=== PATIENT | male | born 1970 | race American Indian/Alaskan Native ===

== ENCOUNTER 2017-05-06 17:37 | Inpatient (IN) | payer MEDICAID, OTHER ==
[2017-05-06 17:49] VITALS: BMI 23.6
[2017-05-06] MEDS ORDERED: Sodium Chloride 0.9% 1,000 ML IV STA (18:21)
--- NOTE | 2017-05-06 18:34 | ED PDOC ---
Arrival/HPI - General Chief Complaint: Weakness/Neurological Deficit Time Seen by Provider: 05/06/17 18:05 Historian: Patient - History of Present Illness Narrative History of Present Illness (Text): 05/06/17 18:38 Patient with no past medical history, reports having an episode of numbness to the right side of his face last night which lasted for a few seconds and resolved spontaneously. He presents today for continued "tingling" sensation to the R side of the face, b/l fingertips and R calf this this AM with no facial or extremity weakness. Patient states that he was sitting watching TV when the episode occurred and his was by his side, his witnessed the entire episode. As per patient's patient started becoming unresponsive although he was awake, his eyes were open, they did not roll back, and started "humming, " and he was just limp for a few seconds, he then become suddenly more alert and the entire episodes ceased spontaneously. He then was able to stand up and walked to his bed and fell asleep as per his . Otherwise: (-) lightheadedness, (-) trauma, (-) headache, (-) palpitations, (-) tinnitus, (-) hearing loss, (-) chest pain, (-) dyspnea, (-) fever, (-) vomiting, (-) diarrhea , (-) syncope, (-) GI bleeding. PMD none Past Medical History - Provider Review Nursing Documentation Reviewed: Yes - Psychiatric Hx Substance Use: No - Surgical History Other/Comment: Left elbow sx Family/Social History - Physician Review Nursing Documentation Reviewed: Yes Family/Social History: No Known Family HX Smoking Status: Heavy Smoker > 10 Cigarettes Daily Hx Alcohol Use: Yes Frequency of alcohol use: Socially Hx Substance Use: No Allergies/Home Meds Allergies/Adverse Reactions: Allergies No Known Allergies Allergy (Verified 05/06/17 17:49) Home Medications: Home Meds Medication Instructions Recorded Confirmed No Known Home Med 05/06/17 05/06/17 Review of Systems - Review of Systems Constitutional: Normal. absent: Fatigue, Weight Change, Fevers Respiratory: Normal. absent: SOB, Cough, Sputum Cardiovascular: Normal. absent: Chest Pain, Palpitations, Edema Gastrointestinal: Normal. absent: Abdominal Pain, Diarrhea, Vomiting Musculoskeletal: Normal. absent: Arthralgias, Back Pain, Neck Pain Skin: Normal. absent: Rash, Pruritis, Skin Lesions Neurological: Normal, Other (numbness R side of the face, fingertips and R calf) . absent: Headache, Dizziness, Focal Weakness Physical Exam Vital Signs Reviewed: Yes Vital Signs Temp Pulse Resp BP Pulse Ox 05/07/17 00:28 98 F 75 20 122/84 98 05/06/17 23:44 96 H 16 140/98 H 100 05/06/17 23:00 93 H 18 118/82 100 05/06/17 20:13 100 H 17 124/89 100 05/06/17 17:46 98.6 F 89 18 138/87 98 Temperature: Afebrile Blood Pressure: Normal Pulse: Regular Respiratory Rate: Normal Appearance: Positive for: Well-Appearing, Non-Toxic, Comfortable Pain Distress: None Mental Status: Positive for: Alert and Oriented X 3 Finger Stick Blood Glucose: 79 - Systems Exam Head: Present: Atraumatic, Normocephalic Pupils: Present: PERRL Extroacular Muscles: Present: EOMI Conjunctiva: Present: Normal Mouth: Present: Moist Mucous Membranes Pharnyx: Present: Normal Neck: Present: Normal Range of Motion. No: MIDLINE TENDERNESS, Paraspinal Tenderness Respiratory/Chest: Present: Clear to Auscultation, Good Air Exchange. No: Respiratory Distress, Accessory Muscle Use, Wheezes, Rhonchi Cardiovascular: Present: Regular Rate and Rhythm, Normal S1, S2. No: Murmurs Abdomen: No: Tenderness, Distention, Rebound, Guarding Back: Present: Normal Inspection. No: CVA Tenderness, Midline Tenderness Upper Extremity: Present: Normal Inspection, Normal ROM, NORMAL PULSES, Neurovascularly Intact, Temperature Abnormalties, Capillary Refill < 2s. No: Edema, Tenderness, Swelling Lower Extremity: Present: Normal Inspection, NORMAL PULSES, Normal ROM, Temperature Abnormalties, Capillary Refill < 2 s. No: Edema, CALF TENDERNESS, Tenderness, Swelling Neurological: Present: GCS=15, CN II-XII Intact, Speech Normal, Motor Func Grossly Intact, Normal Sensory Function, Normal Cerebellar Funct, Norm Deep Tendon Reflexes, Gait Normal, Memory Normal, Normal 2Pt Descrimination Skin: Present: Warm, Dry, Normal Color. No: Rashes Lymphatic: No: Cervical Adenopathy Psychiatric: Present: Alert, Oriented x 3, Normal Insight, Normal Concentration Medical Decision Making ED Course and Treatment: 05/06/17 18:32 47-year-old male otherwise no past medical history, presents to the emergency room after having an episode of numbness to the right face yesterday night, today continues to have tingling sensation to R side of his face, bilateral fingertips, and the posterior right calf. Based on history and exam to rule out CVA, most likely TIA, consider seizure. Plan: -- Labs -- IV fluids -- Urinalysis -- EKG -- CXR -- Reassess and disposition -- CT head 05/06/17 19:58 CXR: NAD, as read by PA EKG: NSR at 78 bpm, no acute ST changes. Labs reviewed and are wnl. CT head results pending. On re-evaluation, patient is resting comfortably in no acute distress. Returned from CT without any incident and currently has no additional complaints. 05/06/17 21:18 CT head results show no acute findings. On reevaluation patient is resting comfortably in bed in no distress. Patient reports no dizziness, headache, chest pain, shortness of breath, or focal weakness or numbness at this time. Repeat neuro exam shows no focal findings. Considering patient's history, exam findings, and diagnostic results plan will be for inpatient observation. Case discussed associate medical director and with Dr. Bird Grigsby, agrees with disposition for inpt observation. Lab and CT results discussed the patient and his , further plan of care for inpatient observation discussed the patient and his and they both agree with current plan. 05/06/17 23:20 Troponin is + at 0.3. On re-evaluation, patient is resting comfortably in bed in no acute distress. Patient continues to deny any chest pain, palpitations, dyspnea or shortness of breath at this time. Dr. Grigsby called immediately and notified of positive result, she states she will follow-up on a repeat troponin , otherwise recommends no further intervention or treatment at this time in the emergency room. - Lab Interpretations Lab Results: 05/06/17 18:25 05/06/17 18:25 Lab Results 05/06/17 18:25: Sodium 137, Potassium 4.5, Chloride 103, Carbon Dioxide 25, Anion Gap 14, BUN 10, Creatinine 1.1, Est GFR ( Amer) > 60, Est GFR (Non- Af Amer) > 60, Random Glucose 103, Calcium 9.6, Total Bilirubin 0.8, AST 32, ALT 41, Alkaline Phosphatase 85, Total Protein 8.8 H, Albumin 4.3, Globulin 4.5 , Albumin/Globulin Ratio 1.0 L 05/06/17 18:25: PT 10.9, INR 1.01, APTT 29.2 05/06/17 18:25: WBC 8.2, RBC 4.63, Hgb 14.5, Hct 42.0, MCV 90.7, MCH 31.3, MCHC 34.5, RDW 14.0, Plt Count 247, MPV 10.0, Gran % 55.8, Lymph % (Auto) 30.9, [place] % (Auto) 11.5 H, Eos % (Auto) 1.6, Baso % (Auto) 0.2, Gran # 4.56, Lymph # 2.5, [place] # 0.9 H, Eos # 0.1, Baso # 0.02 05/06/17 18:00: Troponin I 0.30 H* 05/06/17 16:05: Urine Color Yellow, Urine Appearance Clear, Urine pH 7.5, Ur Specific [place] 1.015, Urine Protein Negative, Urine Glucose (UA) Negative, Urine Ketones Negative, Urine Blood Negative, Urine Nitrate Negative, Urine Bilirubin Negative, Urine Urobilinogen 0.2, Ur Leukocyte Esterase Small H, Urine RBC 1 - 3, Urine WBC 5 - 10, Ur Epithelial Cells 3 - 4, Urine Bacteria Mod I have reviewed the lab results: Yes (pt has +UTI) - RAD Interpretation Narrative RAD Interpretations (Text): 05/06/17 21:17 CT head w/o contrast : FINDINGS: Brain: Ventricles are normal in size and configuration. There is no midline shift. There are no intraaxial or extra-axial mass lesions or areas of hemorrhage. There are no abnormal fluid collections. Barrett-white differentiation is maintained. Ventricles: See above. Bones: Cranial vault is intact. 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 Soft tissues: unremarkable Sinuses: There is no acute sinusitis. Ears and mastoids: Middle ears and mastoids are unremarkable Orbits: Orbital contents are unremarkable. IMPRESSION: No acute intracranial abnormality If there is clinical suspicion for acute stroke, MRI is Dictated and Authenticated by: Hina Brandt MD 05/06/2017 8:20 PM Eastern Time ([place] & [place]) Radiology Orders: 05/06/17 18:26 HEAD W/O CONTRAST [CT] Stat 05/06/17 18:34 CHEST TWO VIEWS (PA/LAT) [RAD] Stat - Medication Orders Current Medication Orders: Aspirin (Aspirin Chewable) 81 mg PO DAILY CHANDRIKA Sodium Chloride (Sodium Chloride 0.9%) 1,000 mls @ 100 mls/hr IV .Q10H STA Stop: 05/07/17 04:20 Last Admin: 05/06/17 18:45 Dose: 100 mls/hr Pantoprazole Sodium (Protonix Inj) 40 mg IVP DAILY CHANDRIKA Discontinued Medications Aspirin (Aspirin) 325 mg PO STAT STA Stop: 05/06/17 18:35 Last Admin: 05/06/17 19:22 Dose: 325 mg Clopidogrel Bisulfate (Plavix) 75 mg PO STAT STA Stop: 05/07/17 02:02 NIHSS Stroke Scale 3 - Date/Time Evaluation Performed Date Performed: 05/06/17 Time Performed: 18:15 When Was NIHSS Performed: Baseline - How Severe is the Stroke Level of Consciousness: 0=Alert LOC to Questions: 0=Both comments correct LOC to commands: 0=Obeys both correctly Best Gaze: 0=Normal Visual: 0=No visual loss Facial: 0=Normal Motor Arm - Left: 0=No drift Motor Arm - Right: 0=No drift Motor Leg - Left: 0=No drift Motor Leg - Right: 0=No drift Limb Ataxia: 0=Absent Sensory: 0=Normal Best Language: 0=No aphasia Dysarthia: 0=Normal articulation Extinction & Inattention (Neglect): 0=Normal, no object Score: 0 - PA / TONE ARTIST APPRENTICE / Resident Statement MD/DO has reviewed & agrees with the documentation as recorded. Disposition/Present on Arrival - Present on Arrival Any Indicators Present on Arrival: No History of DVT/PE: No History of Uncontrolled Diabetes: No Urinary Catheter: No History of Decub. Ulcer: No History Surgical Site Infection Following: None - Disposition Have Diagnosis and Disposition been Completed?: Yes Diagnosis: TIA (transient ischemic attack) Disposition: HOSPITALIZED Disposition Time: 21:18 Patient Plan: Observation (inpt observation to remote tele) Patient Problems: Current Active Problems Problem Status Onset TIA (transient ischemic attack) Acute Condition: STABLE
[2017-05-06 18:49] LABS: BASO # 0.02 K/mm3 (0.0-2.0); BASO % 0.2 % (0.0-3.0); EOS # 0.1 (0.0-0.7); EOS % 1.6 % (1.5-5.0); GRAN # 4.56 (1.4-6.5); GRAN % 55.8 % (50.0-68.0); HEMOGLOBIN 14.5 gm/dL (14.0-18.0); LYMPH # 2.5 (1.2-3.4); LYMPH % 30.9 % (22.0-35.0); MEAN CELL VOLUME 90.7 fL (80.0-105.0); MEAN CORPUSCULAR HEMOGLOBIN 31.3 pg (25.0-35.0); MEAN CORPUSCULAR HGB CONC 34.5 g/dl (31.0-37.0); MONO # 0.9 (0.1-0.6); MONO % 11.5 % (1.0-6.0); PLATELET COUNT 247 10^3/uL (120.0-450.0); RBC 4.63 10^6/uL (3.5-6.1); WHITE BLOOD COUNT 8.2 10^3/ul (4.5-11.0)
[2017-05-06 18:49] LABS: PH,URINE 7.5 (4.7-8.0); URINE BILIRUBIN NEGATIVE (NEGATIVE); URINE BLOOD NEGATIVE (NEGATIVE); URINE GLUCOSE (UA) NEGATIVE (NEGATIVE); URINE LEUKOCYTE ESTERASE SMALL Leu/uL (NEGATIVE); URINE NITRATE NEGATIVE (NEGATIVE); URINE PROTEIN NEGATIVE mg/dL (<30 mg/dL); URINE UROBILINOGEN 0.2 E.U./dL (<1 E.U./dL)
[2017-05-06 18:55] LABS: INR 1.01 (0.93-1.08); PARTIAL THROMBOPLASTIN TIME 29.2 Seconds (23.7-30.8); PROTHROMBIN TIME 10.9 Seconds (9.9-11.8)
[2017-05-06 18:56] LABS: URINE APPEARANCE CLEAR (CLEAR); URINE COLOR YELLOW (YELLOW)
[2017-05-06 19:11] LABS: ALBUMIN 4.3 g/dL (3.0-4.8); ALT/SGPT 41 U/L (7-56); AST/SGOT 32 U/L (15-59); BLOOD UREA NITROGEN 10 mg/dL (7-21); CALCIUM 9.6 mg/dL (8.4-10.5); GFR AFRICAN-AMERICAN > 60; GFR NON-AFRICAN AMERICAN > 60
[2017-05-06 19:41] LABS: URINE BACTERIA MOD (NEG)
--- NOTE | 2017-05-06 20:21 | CT ---
EXAM: CT Head Without Intravenous Contrast CLINICAL HISTORY: 47 years old, male; Signs and symptoms; Hemiplegia and hemiparesis; Right side, dominance unknown; Additional info: R sided facial numbness, R/O TIA TECHNIQUE: Axial computed tomography images of the head/brain without intravenous contrast. This CT exam was performed using one or more of the following dose reduction techniques: automated exposure control, adjustment of the mA and/or kV according to patient size, and/or use of iterative reconstruction technique. EXAM DATE/TIME: 05/06/2017 6:26 PM COMPARISON: There are no prior studies for comparison. FINDINGS: Brain: Ventricles are normal in size and configuration. There is no midline shift. There are no intra-axial or extra-axial mass lesions or areas of hemorrhage. There are no abnormal fluid collections. Barrett-white differentiation is maintained. Ventricles: See above. Bones: Cranial vault is intact. 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 Soft tissues: unremarkable Sinuses: There is no acute sinusitis. Ears and mastoids: Middle ears and mastoids are unremarkable Orbits: Orbital contents are unremarkable. IMPRESSION: No acute intracranial abnormality If there is clinical suspicion for acute stroke, MRI is
[2017-05-06 23:07] LABS: BARBITURATES, UR NEGATIVE (NEGATIVE); BENZODIAZEPINES, UR NEGATIVE (NEGATIVE); OPIATES, UR NEGATIVE (NEGATIVE); PHENCYCLIDINE, UR NEGATIVE (NEGATIVE)
--- NOTE | 2017-05-07 00:39 | CP.PCM.HP ---
History of Present Illness - History of Present Illness History of Present Illness: cc: right arm/leg parasthesias HPI: Patient is a 47yo male with history of tobacco use that presents c/o right upper extremity and lower extremity parasthesias. Patient reports that yesterday he experienced right-sided facial, arm and leg numbness/tingling that lasted less than 10 seconds and immediately resolved. Today he reports that he continued to intermittently experience tingling sensation in his right calf, right arm and face. In the ED, he reported that the facial and arm parasthesias have resolved however he continues to have right leg tingling. He also reported that yesterday when the event occurred he felt unable to speak during the less than 10 second duration. He denied any focal motor deficits, vision changes, dysphagia, speech impairment, chest pain, palpitations, SOB, abdominal pain, nausea, vomiting, fever, chills, cough. 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 Present on Admission - Present on Admission Any Indicators Present on Admission: No Past Patient History - Past Social History Smoking Status: Heavy Smoker > 10 Cigarettes Daily - PSYCHIATRIC Hx Substance Use: No - SURGICAL HISTORY Other/Comment: Left elbow sx Meds Allergies/Adverse Reactions: Allergies Allergy/AdvReac Type Severity Reaction Status Date / Time No Known Allergies Allergy Verified 05/06/17 17:49 Physical Exam - Constitutional Appears: Non-toxic, No Acute Distress - Head Exam Head Exam: ATRAUMATIC, NORMAL INSPECTION, NORMOCEPHALIC - Eye Exam Eye Exam: EOMI, PERRL - ENT Exam ENT Exam: Mucous Membranes Moist - Neck Exam Neck exam: Positive for: Normal Inspection. Negative for: Lymphadenopathy, Tenderness, Thyromegaly - Respiratory Exam Respiratory Exam: Clear to Auscultation Bilateral. absent: Rales, Rhonchi, Wheezes - Cardiovascular Exam Cardiovascular Exam: RRR, +S1, +S2. absent: Gallop, JVD, Rubs - GI/Abdominal Exam GI & Abdominal Exam: Normal Bowel Sounds, Soft. absent: Distended, Firm, Guarding, Rigid, Tenderness - Extremities Exam Extremities exam: Positive for: normal inspection, pedal pulses present. Negative for: calf tenderness, pedal edema Additional comments: motor strength 5/5 in bilateral upper and lower extremities sensory intact throughout - Neurological Exam Neurological exam: Alert, CN II-XII Intact, Oriented x3 Additional comments: sensory intact throughout no facial droop CN2-12 Intact no apparent speech impairment - Psychiatric Exam Psychiatric exam: Normal Affect, Normal Mood - Skin Skin Exam: Dry, Intact, Normal Color, Warm Results - Vital Signs Recent Vital Signs: Last Vital Signs Temp 98 F 05/07/17 00:28 Pulse 75 05/07/17 00:28 Resp 20 05/07/17 00:28 BP 122/84 05/07/17 00:28 Pulse Ox 98 05/07/17 00:28 - Labs Result Diagrams: 05/06/17 18:25 05/06/17 18:25 Labs: Laboratory Results - last 24 hr 05/06/17 22:33 Urine Opiates Screen Negative Urine Methadone Screen Negative Ur Barbiturates Screen Negative Ur Phencyclidine Scrn Negative Ur Amphetamines Screen Negative U Benzodiazepines Scrn Negative U Oth Cocaine Metabols Negative U Cannabinoids Screen Negative Assessment & Plan - Assessment and Plan (Free Text) Plan: 47yo male with history of tobacco use presents c/o right upper and lower extremity parasthesias 1. r/o CVA vs TIA -CT Head revealed no acute intracranial abnormalities -no focal deficits apparent; sensory intact throughout -MRI Brain pending -Neurochecks q4h -Heart healthy diet -Patient given 325mg ASA in ED -Continue ASA 81mg po qd -Pending lipid panel, A1c -Neurology consulted - Dr. Rivera 2. Elevated troponin -Initial Troponin 0.30, repeat pending will trend -Patient with no complaints of chest pain, palpitations, or SOB -EKG revealed NSR @ 78bpm with possible LAE, left anterior fascicular block, nonspecific T wave abnormality, QTC 467ms -Given ASA in ED -Pending TSH, A1C, lipid panel 3. Gi/DVT prophylaxis -Protonix/SCD's Patient seen and case discussed with attending, Dr. Grigsby - Date & Time Date: 05/07/17 Time: 00:39
--- NOTE | 2017-05-07 04:05 | CP.PCM.PN ---
Subjective - Date & Time of Evaluation Date of Evaluation: 05/07/17 Time of Evaluation: 04:00 - Subjective Subjective: Patient was seen and evaluated again at bedside this evening. He had a troponin of 0.30 that on repeat elevated to 0.36. On initial, H&P patient did not complain of chest pain, however on repeat questioning he reports occasional chest discomfort. Repeat EKG and d-dimer was ordered. Call put out to Dr. Turnre who is covering for Dr. Monterroso for further recommendations. Objective - Vital Signs/Intake and Output Vital Signs (last 24 hours): Temp Pulse Resp BP Pulse Ox 98.4 F 74 18 117/90 98 05/07/17 01:09 05/07/17 01:09 05/07/17 01:05/07/17 01:05/07/17 00:28 - Medications Medications: Current Medications Aspirin (Aspirin Chewable) 81 mg PO DAILY CHANDRIKA Sodium Chloride (Sodium Chloride 0.9%) 1,000 mls @ 100 mls/hr IV .Q10H STA Stop: 05/07/17 04:20 Last Admin: 05/06/17 18:45 Dose: 100 mls/hr Pantoprazole Sodium (Protonix Inj) 40 mg IVP DAILY CHANDRIKA - Labs Labs: PT 10.9 Seconds (9.9-11.8) 05/06/17 18:25 INR 1.01 (0.93-1.08) 05/06/17 18:25 APTT 29.2 Seconds (23.7-30.8) 05/06/17 18:25 - Constitutional Appears: Non-toxic, No Acute Distress - Head Exam Head Exam: ATRAUMATIC, NORMAL INSPECTION, NORMOCEPHALIC - Eye Exam Eye Exam: EOMI, PERRL - ENT Exam ENT Exam: Mucous Membranes Moist - Respiratory Exam Respiratory Exam: Clear to Ausculation Bilateral. absent: Rales, Rhonchi, Wheezes - Cardiovascular Exam Cardiovascular Exam: RRR, +S1, +S2. absent: Gallop, JVD, Rubs, Murmur - GI/Abdominal Exam GI & Abdominal Exam: Soft. absent: Distended, Firm, Guarding, Tenderness, Rebound - Neurological Exam Neurological Exam: Alert, Awake, Oriented x3 Neuro motor strength exam: Left Upper Extremity: 5, Right Upper Extremity: 5, Left Lower Extremity: 5, Right Lower Extremity: 5 - Psychiatric Exam Psychiatric exam: Normal Affect, Normal Mood - Skin Skin Exam: Dry, Intact, Normal Color, Warm Assessment and Plan - Assessment and Plan (Free Text) Plan: 47yo male with history of tobacco use presents c/o right upper and lower extremity parasthesias 1. Chest pain r/o ACS -Initial Troponin 0.30 which on repeat elevated to 0.36; 3rd troponin to be drawn -EKG in the ED revealed NSR @ 78bpm with possible LAE, left anterior fascicular block, nonspecific T wave abnormality, QTC 467ms -Repeat EKG showed NSR @ 89bpm with possible LAE, QR pattern in V1 suggestive of right ventricular conduction delay, left anterior fascicular block, nonspecific T wave abnormality -ASA 325 and plavix 75mg had been given -Call put out to Dr. Turner who is covering for Dr. Monterroso for further recommendations -Case discussed between Dr. Grigsby and Dr. Turner at 4:15am; recommended starting the patient on heparin drip -Ordered heparin drip along with plavix 75mg po daily, asa 81mg po daily, metoprolol 25mg po bid -TSH, A1C, Lipid panel pending -D-dimer pending -Echocardiogram pending 2. r/o CVA vs TIA -CT Head revealed no acute intracranial abnormalities -no focal deficits apparent; sensory intact throughout -MRI Brain pending -Neurochecks q4h -Heart healthy diet -Patient given 325mg ASA in ED -Continue ASA 81mg po qd -Pending lipid panel, A1c -Neurology consulted - Dr. Rivera 3. GI/DVT prophylaxis -Protonix/SCD's Patient seen and case discussed with attending, Dr. Grigsby
[2017-05-07] MEDS ORDERED: Heparin25000 units/250ml 1/2NS 25,000 UNITS/250 ML BAG IV SCH (04:15)
[2017-05-07 07:36] LABS: BASO # 0.02 K/mm3 (0.0-2.0); BASO % 0.3 % (0.0-3.0); EOS # 0.2 (0.0-0.7); EOS % 2.7 % (1.5-5.0); GRAN # 3.77 (1.4-6.5); GRAN % 52.7 % (50.0-68.0); HEMOGLOBIN 12.8 gm/dL (14.0-18.0); LYMPH # 2.6 (1.2-3.4); MEAN CELL VOLUME 91.1 fL (80.0-105.0); MEAN CORPUSCULAR HEMOGLOBIN 29.9 pg (25.0-35.0); MEAN CORPUSCULAR HGB CONC 32.8 g/dl (31.0-37.0); MEAN PLATELET VOLUME 9.7 fl (7.0-11.0); MONO # 0.6 (0.1-0.6); MONO % 8.3 % (1.0-6.0); PLATELET COUNT 205 10^3/uL (120.0-450.0); RBC 4.28 10^6/uL (3.5-6.1); RED CELL DISTRIBUTION WIDTH 14.1 % (11.5-14.5); WHITE BLOOD COUNT 7.1 10^3/ul (4.5-11.0)
--- NOTE | 2017-05-07 07:47 | RAD ---
HISTORY: R facial numbness COMPARISON: No prior. TECHNIQUE: Chest PA and lateral FINDINGS: LUNGS: No active pulmonary disease. PLEURA: No significant pleural effusion identified. No pneumothorax apparent. CARDIOVASCULAR: Normal. OSSEOUS STRUCTURES: No significant abnormalities. VISUALIZED UPPER ABDOMEN: Normal. OTHER FINDINGS: None. IMPRESSION: No active disease.
[2017-05-07 07:58] LABS: ALBUMIN 3.6 g/dL (3.0-4.8); ALT/SGPT 37 U/L (7-56); AST/SGOT 33 U/L (15-59); BLOOD UREA NITROGEN 13 mg/dL (7-21); CALCIUM 8.7 mg/dL (8.4-10.5); GFR AFRICAN-AMERICAN > 60; GFR NON-AFRICAN AMERICAN > 60; HDL CHOLESTEROL 53 mg/dL (29-60)
[2017-05-07 08:08] LABS: B-TYPE NATRIURETIC PEPTIDE 885 pg/mL (0-450)
[2017-05-07 08:09] LABS: LDL CHOLESTEROL 213 mg/dL (0-129)
[2017-05-07 08:12] LABS: TROPONIN I 0.49 ng/mL
--- NOTE | 2017-05-07 10:53 | MRI ---
PROCEDURE: MRI BRAIN WITHOUT CONTRAST HISTORY: r/o cva COMPARISON: None. TECHNIQUE: Multiplanar, multisequence MR images of the brain were obtained without intravenous contrast enhancement. FINDINGS: HEMORRHAGE: None DWI: Small curvilinear focus of diffusion weighted abnormality in the left frontal lobe measuring roughly 6 millimeters. No mass effect. BRAIN PARENCHYMA: No mass effect or edema. Chronic microvascular ischemic changes. VENTRICLES: Unremarkable. No hydrocephalus. CRANIUM: Unremarkable. ORBITS: Grossly unremarkable. PARANASAL SINUSES/MASTOIDS: Clear VASCULAR SYSTEM: Skull base flow voids intact. OTHER FINDINGS: None. IMPRESSION: Suspect minimal acute lacunar infarct in the left frontal lobe. Superimposed chronic periventricular white matter signal abnormality. No evidence of acute hemorrhage.
--- NOTE | 2017-05-07 11:30 | CARD ---
APPROVED REPORT EKG Measurement Heart [id number] <Conclusion> Normal sinus rhythm with sinus arrhythmia Possible Left atrial enlargement Left anterior fascicular block Nonspecific T wave abnormality Prolonged QT Abnormal ECG
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
--- NOTE | 2017-05-07 12:32 | CARD ---
APPROVED REPORT EXAM: Two-dimensional and M-mode echocardiogram with Doppler and color Doppler. INDICATION CVA/TIA 2D DIMENSIONS Left Atrium (2D)3.9 (1.6-4.0cm)IVSd1.0 (0.7-1.1cm) LVDd6.3 (3.9-5.9cm)PWd1.0 (0.7-1.1cm) LVDs5.9 (2.5-4.0cm)FS (%) 5.9 % LVEF (%)13.0 (>50%) M-Mode DIMENSIONS Aortic Root3.90 (2.2-3.7cm)Aortic Cusp Exc.1.40 (1.5-2.0cm) Aortic Valve AoV Peak Qylwxkog69.5cm/Edith Peak GR.3mmHg Mitral Valve E/A ratio0.0 TDI E/Lateral E'0.0E/Medial E'0.0 Tricuspid Valve TR Peak [id number] [id number] Peak Gr.41mmHg [id number] LEFT VENTRICLE The Left Ventricle is moderately dilated. There is normal left ventricular wall thickness. The systolic function is severely impaired. There is global hypokinesis of the left ventricle. RIGHT VENTRICLE The right ventricle is normal size. Systolic function is mildly reduced. ATRIA The left atrium is mildly dilated. The right atrium is mildly dilated. The interatrial septum is intact with no evidence for an atrial septal defect. AORTIC VALVE The aortic valve is normal in structure. There is mild aortic regurgitation. There is no aortic valvular stenosis. MITRAL VALVE The mitral valve is normal in structure. Mitral regurgitation is moderate. TRICUSPID VALVE The tricuspid valve is normal in structure. There is moderate tricuspid regurgitation. There is moderate pulmonary hypertension. PULMONIC VALVE The pulmonary valve is normal in structure. GREAT VESSELS The aortic root is normal in size. The IVC is normal in size and collapses >50% with inspiration. PERICARDIAL EFFUSION There is no pleural effusion. There is no pericardial effusion. <Conclusion> Four chamber enlargement. Severely reduced LV systoolic function with global hypokinesis. Moderate MR. Moderate TR. No cardiac source of embolus seen, but if clinical suspicion is high, consider DAISY imaging.
[2017-05-07] MEDS ORDERED: Iodixanol 320 MG/ML 100 ML BOTTLE IV ONE (12:38)
--- NOTE | 2017-05-07 13:53 | CP.PCM.CON ---
History of Present Illness - History of Present Illness History of Present Illness: 47 y/o AA male presented with right sided weakness, numbness and speach difficulty that recovered slowly Brain MRI ? lacunar infarct left frontal lobe No prior cardiac history No chest pain at this time Review of Systems - EENT Nose/Mouth/Throat: absent: As Per HPI, Epistaxis, Nasal Congestion, Nasal Discharge, Nasal Obstruction, Nasal Trauma, Nose Pain, Post Nasal Drip, Sinus Pain, Sinus Pressure, Bleeding Gums, Change in Voice, Dental Pain, Dry Mouth, Dysphagia, Halitosis, Hoarsness, Lip Swelling, Mouth Lesions, Mouth Pain, Odynophagia, Sore Throat, Throat Swelling, Tongue Swelling, Facial Pain, Neck Pain, Neck Mass, Other - Cardiovascular Cardiovascular: absent: As Per HPI, Acrocyanosis, Chest Pain, Chest Pain at Rest , Chest Pain with Activity, Claudication, Diaphoresis, Dyspnea, Dyspnea on Exertion, Edema, Irregular Heart Rhythm, Pain Radiating to Arm/Neck/Jaw, Leg Edema, Leg Ulcers, Lightheadedness, Orthopnea, Palpitations, Paroxysmal Nocturnal Dyspnea, Pedal Edema, Radiating Pain, Rapid Heart Rate, Slow Heart Rate, Syncope, Other - Respiratory Respiratory: absent: As Per HPI, Cough, Dyspnea, Hemoptysis, Dyspnea on Exertion , Wheezing, Snoring, Stridor, Pain on Inspiration, Chest Congestion, Excessive Mucous Production, Change in Mucous Color, Pain with Coughing, Other Past Patient History - Past Social History Smoking Status: Heavy Smoker > 10 Cigarettes Daily - MUSCULOSKELETAL/RHEUMATOLOGICAL Hx Falls: No - PSYCHIATRIC Hx Substance Use: No - SURGICAL HISTORY Other/Comment: Left elbow sx Meds Allergies/Adverse Reactions: Allergies Allergy/AdvReac Type Severity Reaction Status Date / Time No Known Allergies Allergy Verified 05/06/17 17:49 - Medications Medications: Current Medications Aspirin (Aspirin Chewable) 81 mg PO DAILY [facility] Last Admin: 05/07/17 09:17 Dose: 81 mg Atorvastatin Calcium (Lipitor) 40 mg PO DIN [facility] Clopidogrel Bisulfate (Plavix) 75 mg PO DAILY [facility] Last Admin: 05/07/17 09:19 Dose: 75 mg Metoprolol Tartrate (Lopressor) 25 mg PO BID [facility] Last Admin: 05/07/17 09:18 Dose: 25 mg Nitroglycerin (Nitrostat Sl Tab) 0.4 mg SL Q5M PRN PRN Reason: cp Pantoprazole Sodium (Protonix Inj) 40 mg IVP DAILY [facility] Last Admin: 05/07/17 09:17 Dose: 40 mg Physical Exam - Constitutional Appears: Well - Head Exam Head Exam: ATRAUMATIC - Eye Exam Eye Exam: Normal appearance - Neck Exam Neck exam: Positive for: Normal Inspection - Respiratory Exam Respiratory Exam: NORMAL BREATHING PATTERN - Cardiovascular Exam Cardiovascular Exam: REGULAR RHYTHM - GI/Abdominal Exam GI & Abdominal Exam: Normal Bowel Sounds - Extremities Exam Extremities exam: Positive for: normal inspection Results - Vital Signs Recent Vital Signs: Last Vital Signs Temp 98.4 F 05/07/17 01:09 Pulse 74 05/07/17 09:18 Resp 18 05/07/17 01:09 BP 117/90 05/07/17 09:18 Pulse Ox 98 05/07/17 00:28 - Labs Result Diagrams: 05/07/17 07:00 05/07/17 07:00 Labs: Laboratory Results - last 24 hr 05/06/17 05/07/17 05/07/17 22:33 00:45 00:45 WBC RBC Hgb Hct MCV MCH MCHC RDW Plt Count MPV Gran % Lymph % (Auto) [place] % (Auto) Eos % (Auto) Baso % (Auto) Gran # Lymph # [place] # Eos # Baso # D-Dimer, Quantitative Sodium Potassium Chloride Carbon Dioxide Anion Gap BUN Creatinine Est GFR ( Amer) Est GFR (Non-Af Amer) Random Glucose Calcium Total Bilirubin AST ALT Alkaline Phosphatase Troponin I 0.36 H* NT-Pro-B Natriuret Pep Total Protein Albumin Globulin Albumin/Globulin Ratio Triglycerides Cholesterol LDL Cholesterol Direct HDL Cholesterol TSH 3rd Generation 2.44 Urine Opiates Screen Negative Urine Methadone Screen Negative Ur Barbiturates Screen Negative Ur Phencyclidine Scrn Negative Ur Amphetamines Screen Negative U Benzodiazepines Scrn Negative U Oth Cocaine Metabols Negative U Cannabinoids Screen Negative 05/07/17 05/07/17 05/07/17 07:00 07:00 07:00 WBC 7.1 RBC 4.28 Hgb 12.8 L Hct 39.0 L MCV 91.1 MCH 29.9 MCHC 32.8 RDW 14.1 Plt Count 205 MPV 9.7 Gran % 52.7 Lymph % (Auto) 36.0 H [place] % (Auto) 8.3 H Eos % (Auto) 2.7 Baso % (Auto) 0.3 Gran # 3.77 Lymph # 2.6 [place] # 0.6 Eos # 0.2 Baso # 0.02 D-Dimer, Quantitative 0.86 H Sodium 135 Potassium 4.5 Chloride 104 Carbon Dioxide 25 Anion Gap 11 BUN 13 Creatinine 1.2 Est GFR ( Amer) > 60 Est GFR (Non-Af Amer) > 60 Random Glucose 96 Calcium 8.7 Total Bilirubin 0.6 AST 33 ALT 37 Alkaline Phosphatase 66 Troponin I 0.49 H* D NT-Pro-B Natriuret Pep 885 H Total Protein 7.3 Albumin 3.6 Globulin 3.7 Albumin/Globulin Ratio 1.0 L Triglycerides 155 Cholesterol 285 H LDL Cholesterol Direct 213 H HDL Cholesterol 53 TSH 3rd Generation Urine Opiates Screen Urine Methadone Screen Ur Barbiturates Screen Ur Phencyclidine Scrn Ur Amphetamines Screen U Benzodiazepines Scrn U Oth Cocaine Metabols U Cannabinoids Screen Assessment & Plan (1) Ischemic stroke Status: Acute Priority: High - Assessment and Plan (Free Text) Assessment: Acute CVA HTN Borderline elevated trops, likely secondary to CVA Plan: Cont. Aspirin (Aspirin Chewable) 81 mg PO DAILY [facility] Last Admin: 05/07/17 09:17 Dose: 81 mg Atorvastatin Calcium (Lipitor) 40 mg PO DIN [facility] Clopidogrel Bisulfate (Plavix) 75 mg PO DAILY [facility] Last Admin: 05/07/17 09:19 Dose: 75 mg Metoprolol Tartrate (Lopressor) 25 mg PO BID [facility] Last Admin: 05/07/17 09:18 Dose: 25 mg Nitroglycerin (Nitrostat Sl Tab) 0.4 mg SL Q5M PRN PRN Reason: cp Pantoprazole Sodium (Protonix Inj) 40 mg IVP DAILY [facility] Last Admin: 05/07/17 09:17 Dose: 40 mg D/C heparin f/u Echo Discussed with Dr. Ledbetter and neurologist
--- NOTE | 2017-05-07 14:10 | CT ---
PROCEDURE: CT Angiography of the Brain. HISTORY: STROKE COMPARISON: None available. TECHNIQUE: CT angiography of the intracranial arteries was performed. Coronal and sagittal maximum intensity projection reformated images were generated. This CT exam was performed using one or more of the following dose reduction techniques: Automated exposure control, adjustment of the mA and/or kV according to patient size, and/or use of iterative reconstruction technique. FINDINGS: INTERNAL CEREBRAL ARTERIES: Unremarkable. The skull base, petrous, cavernous and supraclinoid segments are bilaterally widely patient. ANTERIOR CEREBRAL ARTERIES: Unremarkable. A1 and A2 segments are widely patent. Smaller distal branches unremarkable, as visualized. MIDDLE CEREBRAL ARTERIES: Unremarkable. M1 and M2 segments are widely patent. Perisylvian branches grossly symmetric. POSTERIOR CIRCULATION: Basilar Artery: Unremarkable. Distal Vertebral Arteries: Unremarkable. Posterior Cerebral Arteries: Unremarkable. Posterior Inferior Cerebellar Arteries: Unremarkable. ANEURYSM/ VASCULAR MALFORMATIONS: None. OTHER FINDINGS: None. IMPRESSION: Unremarkable CT Angiography of the Brain. PROCEDURE: CT Angiography of the neck with contrast HISTORY: STROKE COMPARISON: None available. FINDINGS: RIGHT CAROTID ARTERIES: Common Carotid Artery: Normal. Carotid Bifurcation: Normal. Internal Carotid Artery:Normal. External Carotid Artery (proximal branches): Normal. LEFT CAROTID ARTERIES: Common Carotid Artery: Normal. Carotid Bifurcation: Normal. Internal Carotid Artery:Normal. External Carotid Artery (proximal branches): Normal. VERTEBRAL ARTERIES: Right Vertebral Artery: Normal. Left Vertebral Artery: Normal. OTHER FINDINGS: None. IMPRESSION: Normal CT Angiography of the neck.
--- NOTE | 2017-05-07 15:38 | CARD ---
APPROVED REPORT EKG Measurement Heart [id number] <Conclusion> Normal sinus rhythm Possible Left atrial enlargement RSR' or QR pattern in V1 suggests right ventricular conduction delay Left anterior fascicular block Nonspecific T wave abnormality Prolonged QT
[2017-05-07 16:21] LABS: INR 1.05 (0.93-1.08); PARTIAL THROMBOPLASTIN TIME 27.9 Seconds (23.7-30.8); PROTHROMBIN TIME 11.3 Seconds (9.9-11.8)
--- NOTE | 2017-05-07 16:49 | US ---
HISTORY: Leg pain and swelling. Evaluate for DVT PHYSICIAN(S): Navneet Kauffman MD. TECHNIQUE: Duplex sonography and color-flow Doppler with graded compression were used to evaluate the deep venous systems of both lower extremities. FINDINGS: The visualized deep venous systems of both lower extremities are sonographically normal and compressible. Normal wave forms and augmentation are seen. There is no sonographic evidence for deep venous thrombosis in the visualized segments of both lower extremities. IMPRESSION: No sonographic evidence for deep venous thrombosis in the visualized segments of both lower extremities.
--- NOTE | 2017-05-07 16:52 | US ---
PROCEDURE: Bilateral carotid artery duplex ultrasound HISTORY: Carotid stenosis TIA PHYSICIAN(S): Navneet Kauffman MD. TECHNIQUE: Duplex sonography and color-flow Doppler were used to evaluate the carotid bifurcations and limited segments of the vertebral arteries bilaterally. FINDINGS: There is mild smooth hypoechoic plaque noted at the carotid bifurcations bilaterally. The peak systolic velocity in the proximal right internal carotid artery is 51 cm/sec. This corresponds to a 20 to 39% proximal right ICA stenosis. Normal systolic velocities are noted in the proximal right external carotid artery. There is antegrade flow in the right vertebral artery. The peak systolic velocity in the proximal left internal carotid artery is 38 cm/sec. This corresponds to a 20 to 39% proximal left ICA stenosis. Normal systolic velocities are noted in the proximal left external carotid artery. There is antegrade flow in the left vertebral artery. IMPRESSION: 1. Bilateral 20-39% proximal ICA stenoses. 2. Antegrade flow in both vertebral arteries.
[2017-05-08 10:21] LABS: BASO # 0.02 K/mm3 (0.0-2.0); BASO % 0.3 % (0.0-3.0); EOS # 0.1 (0.0-0.7); EOS % 2.1 % (1.5-5.0); GRAN # 3.51 (1.4-6.5); GRAN % 51.6 % (50.0-68.0); HEMOGLOBIN 12.7 gm/dL (14.0-18.0); LYMPH # 2.4 (1.2-3.4); LYMPH % 35.6 % (22.0-35.0); MEAN CELL VOLUME 91.7 fL (80.0-105.0); MEAN CORPUSCULAR HEMOGLOBIN 30.1 pg (25.0-35.0); MEAN CORPUSCULAR HGB CONC 32.8 g/dl (31.0-37.0); MEAN PLATELET VOLUME 10.3 fl (7.0-11.0); MONO # 0.7 (0.1-0.6); MONO % 10.4 % (1.0-6.0); PLATELET COUNT 199 10^3/uL (120.0-450.0); RBC 4.22 10^6/uL (3.5-6.1); RED CELL DISTRIBUTION WIDTH 14.1 % (11.5-14.5); WHITE BLOOD COUNT 6.8 10^3/ul (4.5-11.0)
[2017-05-08 10:31] LABS: ALBUMIN 3.9 g/dL (3.0-4.8); ALT/SGPT 32 U/L (7-56); AST/SGOT 25 U/L (15-59); BLOOD UREA NITROGEN 11 mg/dL (7-21); CALCIUM 9.1 mg/dL (8.4-10.5); GFR AFRICAN-AMERICAN > 60; GFR NON-AFRICAN AMERICAN > 60
--- NOTE | 2017-05-08 10:49 | CP.PCM.PN ---
Subjective - Date & Time of Evaluation Date of Evaluation: 05/08/17 Time of Evaluation: 10:46 - Subjective Subjective: Mr. Lubin was seen and examined today at bedside. He had no complaints and there were no acute events overnight. Objective - Vital Signs/Intake and Output Vital Signs (last 24 hours): Temp Pulse Resp BP Pulse Ox 98.3 F 106 H 20 119/87 98 05/08/17 06:00 05/08/17 09:26 05/08/17 06:00 05/08/17 09:26 05/08/17 06:00 Intake and Output: 05/08/17 05/08/17 06:59 18:59 Intake Total 480 Balance 480 - Medications Medications: Current Medications Aspirin (Aspirin Chewable) 81 mg PO DAILY [facility] Last Admin: 05/08/17 09:26 Dose: 81 mg Atorvastatin Calcium (Lipitor) 40 mg PO DIN [facility] Last Admin: 05/07/17 17:41 Dose: 40 mg Clopidogrel Bisulfate (Plavix) 75 mg PO DAILY [facility] Last Admin: 05/08/17 09:26 Dose: 75 mg Metoprolol Tartrate (Lopressor) 25 mg PO BID [facility] Last Admin: 05/08/17 09:26 Dose: 25 mg Nitroglycerin (Nitrostat Sl Tab) 0.4 mg SL Q5M PRN PRN Reason: cp Pantoprazole Sodium (Protonix Inj) 40 mg IVP DAILY [facility] Last Admin: 05/08/17 09:25 Dose: 40 mg - Labs Labs: 05/08/17 10:00 05/08/17 10:00 PT 11.3 Seconds (9.9-11.8) 05/07/17 15:57 INR 1.05 (0.93-1.08) 05/07/17 15:57 APTT 27.9 Seconds (23.7-30.8) 05/07/17 15:57 - Neurological Exam Neurological Exam: Awake, CN II-XII Intact, Normal Gait, Oriented x3 Neuro motor strength exam: Left Upper Extremity: 5, Right Upper Extremity: 5, Left Lower Extremity: 5, Right Lower Extremity: 5 - Psychiatric Exam Psychiatric exam: Normal Affect, Normal Mood Assessment and Plan (1) Ischemic stroke Assessment & Plan: CTA of the head and neck was normal. The characteristic of the stroke is concerning for cardioembolic etiology, but telemetry has been okay. I recommend outpatient prolonged cardiac monitoring with a Holter monitor or loop recorder. Continue aspirin 81 and Plavix 75 for 21 days and then continue only aspirin 81 mg indefinitely. Continue Lipitor and counseled about smoking cessation. Status: Acute
--- NOTE | 2017-05-08 12:49 | CP.PCM.PN ---
Subjective - Date & Time of Evaluation Date of Evaluation: 05/08/17 Time of Evaluation: 12:46 - Subjective Subjective: no c/p or SOB residual RT. sided numbness Echo reviewed EF13% Objective - Vital Signs/Intake and Output Vital Signs (last 24 hours): Temp Pulse Resp BP Pulse Ox 98.3 F 84 20 119/87 98 05/08/17 06:00 05/08/17 10:00 05/08/17 06:00 05/08/17 09:26 05/08/17 06:00 Intake and Output: 05/08/17 05/08/17 06:59 18:59 Intake Total 480 Balance 480 - Medications Medications: Current Medications Aspirin (Aspirin Chewable) 81 mg PO DAILY [facility] Last Admin: 05/08/17 09:26 Dose: 81 mg Atorvastatin Calcium (Lipitor) 40 mg PO DIN [facility] Last Admin: 05/07/17 17:41 Dose: 40 mg Metoprolol Tartrate (Lopressor) 25 mg PO BID [facility] Last Admin: 05/08/17 09:26 Dose: 25 mg Nitroglycerin (Nitrostat Sl Tab) 0.4 mg SL Q5M PRN PRN Reason: cp Pantoprazole Sodium (Protonix Inj) 40 mg IVP DAILY [facility] Last Admin: 05/08/17 09:25 Dose: 40 mg - Labs Labs: 05/08/17 10:00 05/08/17 10:00 PT 11.3 Seconds (9.9-11.8) 05/07/17 15:57 INR 1.05 (0.93-1.08) 05/07/17 15:57 APTT 27.9 Seconds (23.7-30.8) 05/07/17 15:57 - Head Exam Head Exam: NORMOCEPHALIC - ENT Exam ENT Exam: Normal Exam - Neck Exam Neck Exam: Normal Inspection - Respiratory Exam Respiratory Exam: Clear to Ausculation Bilateral - Cardiovascular Exam Cardiovascular Exam: REGULAR RHYTHM - GI/Abdominal Exam GI & Abdominal Exam: Normal Bowel Sounds - Extremities Exam Extremities Exam: Normal Inspection Assessment and Plan (1) Ischemic stroke Status: Acute - Assessment and Plan (Free Text) Assessment: s/p CVA Cardiomyopathy Plan: Discussed with Dr. Parada and Khloe Carpenter cont. Aspirin (Aspirin Chewable) 81 mg PO DAILY [facility] Last Admin: 07/04/17 09:26 Dose: 81 mg Atorvastatin Calcium (Lipitor) 40 mg PO DIN [facility] Last Admin: 05/07/17 17:41 Dose: 40 mg Metoprolol Tartrate (Lopressor) 25 mg PO BID [facility] Last Admin: 05/08/17 09:26 Dose: 25 mg Nitroglycerin (Nitrostat Sl Tab) 0.4 mg SL Q5M PRN PRN Reason: cp Pantoprazole Sodium (Protonix Inj) 40 mg IVP DAILY [facility] Last Admin: 05/08/17 09:25 Dose: 40 mg Start coumadin and cozar therpy EP eval for a Vest placement
[2017-05-08 14:00] LABS: INR 1.03 (0.93-1.08); PROTHROMBIN TIME 11.1 Seconds (9.9-11.8)
--- NOTE | 2017-05-08 15:17 | CP.PCM.PN ---
<JESSICA MCALLISTER - Last Filed: 05/08/17 17:30> Subjective - Date & Time of Evaluation Date of Evaluation: 05/08/17 Time of Evaluation: 10:35 - Subjective Subjective: Medicine Progress Note: Pt was seen and assessed at bedside. Previous right sided weakness improving, per pt and exam. Pt with no complaints. Pt denies SOB, chest pain, headache, fever, any worsening weakness/numbness, or abdominal pain. Objective - Vital Signs/Intake and Output Vital Signs (last 24 hours): Temp Pulse Resp BP Pulse Ox 98.3 F 84 20 119/87 98 05/08/17 06:00 05/08/17 10:00 05/08/17 06:00 05/08/17 09:26 05/08/17 06:00 Intake and Output: 05/08/17 05/08/17 06:59 18:59 Intake Total 480 Balance 480 - Medications Medications: Current Medications Aspirin (Aspirin Chewable) 81 mg PO DAILY [facility] Last Admin: 05/08/17 09:26 Dose: 81 mg Atorvastatin Calcium (Lipitor) 40 mg PO DIN [facility] Last Admin: 05/07/17 17:41 Dose: 40 mg Heparin Sodium/Sodium Chloride (Heparin 94199 Units/250ml 1/2 Normal Saline) 25 ,000 units in 250 mls @ 8.981 mls/hr IV .Q24H PRN; Protocol; 12 UNITS/KG/HR PRN Reason: ADJUST RATE PER PROTOCOL Losartan Potassium (Cozaar) 12.5 mg PO DAILY [facility] Metoprolol Tartrate (Lopressor) 25 mg PO BID [facility] Last Admin: 05/08/17 09:26 Dose: 25 mg Nitroglycerin (Nitrostat Sl Tab) 0.4 mg SL Q5M PRN PRN Reason: cp Pantoprazole Sodium (Protonix Inj) 40 mg IVP DAILY [facility] Last Admin: 05/08/17 09:25 Dose: 40 mg Warfarin Sodium (Coumadin) 5 mg PO 1800 [facility] PRN Reason: Protocol - Labs Labs: 05/08/17 10:00 05/08/17 10:00 PT 11.1 Seconds (9.9-11.8) 05/08/17 13:41 INR 1.03 (0.93-1.08) 05/08/17 13:41 APTT 27.9 Seconds (23.7-30.8) 05/07/17 15:57 - Constitutional Appears: No Acute Distress - Head Exam Head Exam: ATRAUMATIC, NORMAL INSPECTION, NORMOCEPHALIC - Eye Exam Eye Exam: EOMI, Normal appearance - ENT Exam ENT Exam: Mucous Membranes Moist, Normal Exam - Neck Exam Neck Exam: Full ROM - Respiratory Exam Respiratory Exam: Clear to Ausculation Bilateral, NORMAL BREATHING PATTERN. absent: Rales, Rhonchi, Wheezes - Cardiovascular Exam Cardiovascular Exam: REGULAR RHYTHM, +S1, +S2. absent: Murmur - GI/Abdominal Exam GI & Abdominal Exam: absent: Distended, Guarding, Tenderness - Extremities Exam Extremities Exam: absent: Calf Tenderness, Pedal Edema - Neurological Exam Neurological Exam: Alert, Awake, Oriented x3 Neuro motor strength exam: Left Upper Extremity: 5, Right Upper Extremity: 4, Left Lower Extremity: 5, Right Lower Extremity: 4 - Psychiatric Exam Psychiatric exam: Normal Affect, Normal Mood - Skin Skin Exam: Dry, Intact, Normal Color, Warm Assessment and Plan - Assessment and Plan (Free Text) Assessment: 47yo male with history of tobacco use admitted for CVA and right sided hemiparesis 1. CVA/right sided hemiparesis -MRI Brain showed minimal acute lacunar infarct in left frontal lobe -high suspicion for embolic etiology, per neurology -Echo negative for embolism -Carotid artery ultrasound, Head/neck CTA both unremarkable -Continue aspirin, lipitor -DC plavix -Start Coumadin 5mg with heparin drip for bridging; INR 1.03 -Neurochecks q4h -Heart healthy diet 2. Cardiomyopathy -Echo showed EF of 13.7% and global hypokinesis with all 4 chambers being dilated -Cardiology consulted -EP consulted for lifevest/AICD eval -Will consider outpatient holter monitor to r/o paroxysmal a-fib -Start cozaar -ordered A1C, TSH, B12 3. GI/DVT prophylaxis -Protonix/SCD's Patient seen and case discussed with attending physician, Dr. Ledbetter. <Larry Ledbetter - Last Filed: 05/09/17 06:38> Objective - Vital Signs/Intake and Output Vital Signs (last 24 hours): Temp Pulse Resp BP Pulse Ox 99 F 89 20 119/83 98 05/09/17 01:42 05/09/17 01:42 05/09/17 01:42 05/09/17 01:42 05/09/17 01:42 Intake and Output: 05/08/17 05/09/17 18:59 06:59 Intake Total 895 Output Total 1250 Balance -355 - Medications Medications: Current Medications Aspirin (Aspirin Chewable) 81 mg PO DAILY [facility] Last Admin: 05/08/17 09:26 Dose: 81 mg Atorvastatin Calcium (Lipitor) 40 mg PO DIN [facility] Last Admin: 05/08/17 17:57 Dose: 40 mg Heparin Sodium/Sodium Chloride (Heparin 58794 Units/250ml 1/2 Normal Saline) 25 ,000 units in 250 mls @ 8.981 mls/hr IV .Q24H PRN; Protocol; 12 UNITS/KG/HR PRN Reason: ADJUST RATE PER PROTOCOL Last Admin: 05/08/17 22:44 Dose: 14 units/kg/hr, 10.478 mls/hr Losartan Potassium (Cozaar) 12.5 mg PO DAILY [facility] Last Admin: 05/08/17 15:22 Dose: 12.5 mg Metoprolol Tartrate (Lopressor) 25 mg PO BID [facility] Last Admin: 05/08/17 17:57 Dose: 25 mg Nitroglycerin (Nitrostat Sl Tab) 0.4 mg SL Q5M PRN PRN Reason: cp Pantoprazole Sodium (Protonix Ec Tab) 40 mg PO 0600 [facility] Warfarin Sodium (Coumadin) 5 mg PO 1800 [facility] PRN Reason: Protocol Last Admin: 05/08/17 17:57 Dose: 5 mg - Labs Labs: 05/09/17 04:25 05/09/17 04:25 PT 11.4 Seconds (9.9-11.8) 05/09/17 04:25 INR 1.06 (0.93-1.08) 05/09/17 04:25 APTT 49.5 Seconds (23.7-30.8) H 05/09/17 05:12 Attending/Attestation - Attestation I have personally seen and examined this patient.: Yes I have fully participated in the care of the patient.: Yes I have reviewed all pertinent clinical information, including history, physical exam and plan: Yes Notes (Text): 05/08/17 47 year old male who presented with complaint of right sided weakness. Initial CT head was negative, however, MRI brain showed minimal acute lacunar infarct in the left frontal lobe. Carotid doppler and CTA head/neck were unremarkable. Echocardiogram showed EF of 13.7% with 4 chamber dilation and global hypokinesis. Patient has mildly elevated troponin and D-dimer likely from CVA per cardiology and neurology. LE doppler was negative. Continue with aspirin and statin. Will also start heparin drip and coumadin for anticoagulation as per cardiology/neurology recommendations. EP evaluation is requested as well. Continue with telemetry monitoring and consider outpatient holter monitor. Continue with physical therapy. Larry Ledbetter MD Hospitalist.
[2017-05-08] MEDS: Heparin25000 units/250ml 1/2NS 25,000 UNITS/250 ML BAG IV PRN ×2 (15:27→22:44)
[2017-05-09 04:35] LABS: BASO # 0.02 K/mm3 (0.0-2.0); BASO % 0.2 % (0.0-3.0); EOS # 0.2 (0.0-0.7); EOS % 1.8 % (1.5-5.0); GRAN # 5.38 (1.4-6.5); GRAN % 55.8 % (50.0-68.0); HEMOGLOBIN 13.3 gm/dL (14.0-18.0); LYMPH # 3.4 (1.2-3.4); MEAN CELL VOLUME 90.8 fL (80.0-105.0); MEAN CORPUSCULAR HEMOGLOBIN 30.7 pg (25.0-35.0); MEAN CORPUSCULAR HGB CONC 33.8 g/dl (31.0-37.0); MEAN PLATELET VOLUME 9.7 fl (7.0-11.0); MONO # 0.7 (0.1-0.6); MONO % 7.2 % (1.0-6.0); PLATELET COUNT 188 10^3/uL (120.0-450.0); RBC 4.33 10^6/uL (3.5-6.1); WHITE BLOOD COUNT 9.6 10^3/ul (4.5-11.0)
[2017-05-09 04:44] LABS: INR 1.06 (0.93-1.08); PROTHROMBIN TIME 11.4 Seconds (9.9-11.8)
[2017-05-09 04:53] LABS: ALB/GLOB RATIO 1.1 (1.1-1.8); ALBUMIN 4.2 g/dL (3.0-4.8); ALT/SGPT 32 U/L (7-56); AST/SGOT 32 U/L (15-59); BLOOD UREA NITROGEN 12 mg/dL (7-21); CALCIUM 9.3 mg/dL (8.4-10.5); GFR AFRICAN-AMERICAN > 60; GFR NON-AFRICAN AMERICAN > 60
[2017-05-09] MEDS ORDERED: Morphine 2 mg/ml ISec IVP STA (05:02)
[2017-05-09] MEDS: Pantoprazole 40 mg EC Tab PO SCH (06:54)
[2017-05-09] MEDS: Heparin25000 units/250ml 1/2NS 25,000 UNITS/250 ML BAG IV PRN (17:36)
--- NOTE | 2017-05-09 18:21 | CP.PCM.PN ---
<JESSICA MCALLISTER - Last Filed: 05/09/17 18:18> Subjective - Date & Time of Evaluation Date of Evaluation: 05/09/17 Time of Evaluation: 08:35 - Subjective Subjective: Medicine Progress Note: Pt was seen and assessed at bedside. Pt complained of headache and ear pain overnight that resolved after he refused heparin drip. Pt had no new complaints on examination this morning. Pt denied headaches, ear pain, changes in vision, chest pain, SOB, or abdominal pain. Objective - Vital Signs/Intake and Output Vital Signs (last 24 hours): Temp Pulse Resp BP Pulse Ox 98.2 F 96 H 20 104/78 100 05/09/17 16:00 05/09/17 17:26 05/09/17 16:00 05/09/17 17:26 05/09/17 16:00 Intake and Output: 05/09/17 05/09/17 06:59 18:59 Intake Total 895 675 Output Total 1250 Balance -355 675 - Medications Medications: Current Medications Aspirin (Aspirin Chewable) 81 mg PO DAILY [facility] Last Admin: 05/09/17 09:21 Dose: 81 mg Atorvastatin Calcium (Lipitor) 40 mg PO DIN [facility] Last Admin: 05/09/17 17:26 Dose: 40 mg Heparin Sodium/Sodium Chloride (Heparin 33426 Units/250ml 1/2 Normal Saline) 25 ,000 units in 250 mls @ 8.981 mls/hr IV .Q24H PRN; Protocol; 12 UNITS/KG/HR PRN Reason: ADJUST RATE PER PROTOCOL Last Admin: 05/09/17 17:36 Dose: 16 units/kg/hr, 11.975 mls/hr Losartan Potassium (Cozaar) 12.5 mg PO DAILY [facility] Last Admin: 05/09/17 09:21 Dose: 12.5 mg Metoprolol Tartrate (Lopressor) 25 mg PO BID [facility] Last Admin: 05/09/17 17:26 Dose: 25 mg Nitroglycerin (Nitrostat Sl Tab) 0.4 mg SL Q5M PRN PRN Reason: cp Pantoprazole Sodium (Protonix Ec Tab) 40 mg PO 0600 [facility] Last Admin: 05/09/17 06:54 Dose: 40 mg Warfarin Sodium (Coumadin) 5 mg PO 1800 [facility] PRN Reason: Protocol Last Admin: 05/09/17 17:26 Dose: 5 mg - Labs Labs: 05/09/17 04:25 05/09/17 04:25 PT 11.4 Seconds (9.9-11.8) 05/09/17 04:25 INR 1.06 (0.93-1.08) 05/09/17 04:25 APTT 43.9 Seconds (23.7-30.8) H 05/09/17 11:00 - Constitutional Appears: No Acute Distress - Head Exam Head Exam: NORMAL INSPECTION, NORMOCEPHALIC - Eye Exam Eye Exam: EOMI, Normal appearance - ENT Exam ENT Exam: Mucous Membranes Moist, Normal Exam - Neck Exam Neck Exam: Full ROM - Respiratory Exam Respiratory Exam: Clear to Ausculation Bilateral, NORMAL BREATHING PATTERN. absent: Rales, Rhonchi, Wheezes, Respiratory Distress - Cardiovascular Exam Cardiovascular Exam: REGULAR RHYTHM, +S1, +S2. absent: Murmur - GI/Abdominal Exam GI & Abdominal Exam: absent: Distended, Tenderness - Extremities Exam Extremities Exam: absent: Calf Tenderness, Pedal Edema - Neurological Exam Neurological Exam: Alert, Awake, Oriented x3 - Psychiatric Exam Psychiatric exam: Normal Affect, Normal Mood - Skin Skin Exam: Dry, Intact, Normal Color, Warm Assessment and Plan - Assessment and Plan (Free Text) Assessment: 47yo male with history of tobacco use admitted for CVA and right sided hemiparesis 1. CVA/right sided hemiparesis -Continue aspirin, lipitor -Continue coumadin 5mg with INR at 1.06; pt refused heparin drip d/t pain -Neurochecks q4h -Heart healthy diet -continue PT/OT 2. Cardiomyopathy -Cardiology on board -awaiting EP consult for lifevest/AICD eval -Will consider outpatient holter monitor to r/o paroxysmal a-fib based on EP consult -continue cozaar for blood pressure control 3. GI/DVT prophylaxis -Protonix/SCD's Patient seen and case discussed with attending physician, Dr. Ledbetter. <Larry Ledbetter - Last Filed: 05/10/17 06:44> Objective - Vital Signs/Intake and Output Vital Signs (last 24 hours): Temp Pulse Resp BP Pulse Ox 99.0 F 92 H 20 125/89 98 05/10/17 00:56 05/10/17 06:00 05/10/17 00:56 05/10/17 00:56 05/10/17 00:56 Intake and Output: 05/09/17 05/10/17 18:59 06:59 Intake Total 675 1164 Output Total 950 Balance 675 214 - Medications Medications: Current Medications Aspirin (Aspirin Chewable) 81 mg PO DAILY [facility] Last Admin: 05/09/17 09:21 Dose: 81 mg Atorvastatin Calcium (Lipitor) 40 mg PO DIN [facility] Last Admin: 05/09/17 17:26 Dose: 40 mg Heparin Sodium/Sodium Chloride (Heparin 92864 Units/250ml 1/2 Normal Saline) 25 ,000 units in 250 mls @ 8.981 mls/hr IV .Q24H PRN; Protocol; 12 UNITS/KG/HR PRN Reason: ADJUST RATE PER PROTOCOL Last Admin: 05/09/17 17:36 Dose: 16 units/kg/hr, 11.975 mls/hr Losartan Potassium (Cozaar) 12.5 mg PO DAILY [facility] Last Admin: 05/09/17 09:21 Dose: 12.5 mg Metoprolol Tartrate (Lopressor) 25 mg PO BID [facility] Last Admin: 05/09/17 17:26 Dose: 25 mg Nitroglycerin (Nitrostat Sl Tab) 0.4 mg SL Q5M PRN PRN Reason: cp Pantoprazole Sodium (Protonix Ec Tab) 40 mg PO 0600 [facility] Last Admin: 05/10/17 05:24 Dose: 40 mg Warfarin Sodium (Coumadin) 5 mg PO 1800 [facility] PRN Reason: Protocol Last Admin: 05/09/17 17:26 Dose: 5 mg - Labs Labs: 05/09/17 04:25 05/09/17 04:25 PT 11.4 Seconds (9.9-11.8) 05/09/17 04:25 INR 1.06 (0.93-1.08) 05/09/17 04:25 APTT 64.8 Seconds (23.7-30.8) H 05/10/17 06:00 Attending/Attestation - Attestation I have personally seen and examined this patient.: Yes I have fully participated in the care of the patient.: Yes I have reviewed all pertinent clinical information, including history, physical exam and plan: Yes Notes (Text): 05/09/17 47 year old male who presented with complaint of right sided weakness. Initial CT head was negative, however, MRI brain showed minimal acute lacunar infarct in the left frontal lobe. Carotid doppler and CTA head/neck were unremarkable. Echocardiogram showed EF of 13.7% with 4 chamber dilation and global hypokinesis. Continue with heparin drip and coumadin for anticoagulation as per cardiology/ neurology recommendations. Continue with aspirin and statin. Physical therapy evaluation was appreciated. EP evaluation was requested as well and is pending. Continue with telemetry monitoring and consider outpatient holter monitor. Larry Ledbetter MD Hospitalist.
[2017-05-10] MEDS: Pantoprazole 40 mg EC Tab PO SCH (05:24)
[2017-05-10 06:25] LABS: BASO # 0.02 K/mm3 (0.0-2.0); BASO % 0.2 % (0.0-3.0); EOS # 0.2 (0.0-0.7); EOS % 2.3 % (1.5-5.0); GRAN # 4.27 (1.4-6.5); GRAN % 49.3 % (50.0-68.0); HEMOGLOBIN 12.8 gm/dL (14.0-18.0); LYMPH # 3.3 (1.2-3.4); LYMPH % 38.2 % (22.0-35.0); MEAN CELL VOLUME 90.4 fL (80.0-105.0); MEAN CORPUSCULAR HEMOGLOBIN 30.7 pg (25.0-35.0); MEAN PLATELET VOLUME 10.3 fl (7.0-11.0); MONO # 0.9 (0.1-0.6); PLATELET COUNT 197 10^3/uL (120.0-450.0); RBC 4.17 10^6/uL (3.5-6.1); RED CELL DISTRIBUTION WIDTH 14.1 % (11.5-14.5); WHITE BLOOD COUNT 8.7 10^3/ul (4.5-11.0)
[2017-05-10 06:46] LABS: ALBUMIN 3.8 g/dL (3.0-4.8); ALT/SGPT 40 U/L (7-56); AST/SGOT 81 U/L (15-59); BLOOD UREA NITROGEN 11 mg/dL (7-21); CALCIUM 9.1 mg/dL (8.4-10.5); GFR AFRICAN-AMERICAN > 60; GFR NON-AFRICAN AMERICAN > 60
[2017-05-10 08:24] LABS: INR 1.13 (0.93-1.08); PROTHROMBIN TIME 12.2 Seconds (9.9-11.8)
[2017-05-10] MEDS: Heparin25000 units/250ml 1/2NS 25,000 UNITS/250 ML BAG IV PRN (11:53)
[2017-05-10] MEDS: Enoxaparin 80 mg Syringe SC SCH (13:51)
--- NOTE | 2017-05-10 18:04 | CP.PCM.PN ---
<JESSICA MCALLISTER - Last Filed: 05/10/17 18:00> Subjective - Date & Time of Evaluation Date of Evaluation: 05/10/17 Time of Evaluation: 09:45 - Subjective Subjective: Medicine Progress Note: Pt was seen and assessed at bedside. Pt complained of headache and numbness/ tingling in his lower extremities bilaterally and his right upper extremity that he believes is due to the heparin drip. Pt denied changes in vision, chest pain, SOB, weakness or abdominal pain. Objective - Vital Signs/Intake and Output Vital Signs (last 24 hours): Temp Pulse Resp BP Pulse Ox 98 F 92 H 20 112/85 96 05/10/17 16:00 05/10/17 16:00 05/10/17 16:00 05/10/17 16:00 05/10/17 16:00 Intake and Output: 05/10/17 05/10/17 06:59 18:59 Intake Total 1164 850 Output Total 950 Balance 214 850 - Medications Medications: Current Medications Aspirin (Aspirin Chewable) 81 mg PO DAILY [facility] [place] Last Admin: 05/10/17 09:12 Dose: 81 mg Atorvastatin Calcium (Lipitor) 40 mg PO DIN [facility] [place] Last Admin: 05/09/17 17:26 Dose: 40 mg Enoxaparin Sodium (Lovenox) 70 mg SC Q12H [facility] [place] PRN Reason: Protocol Last Admin: 05/10/17 13:51 Dose: 70 mg Losartan Potassium (Cozaar) 12.5 mg PO DAILY [facility] [place] Last Admin: 05/10/17 09:13 Dose: 12.5 mg Metoprolol Tartrate (Lopressor) 25 mg PO BID [facility] [place] Last Admin: 05/10/17 09:12 Dose: 25 mg Nitroglycerin (Nitrostat Sl Tab) 0.4 mg SL Q5M PRN PRN Reason: cp Pantoprazole Sodium (Protonix Ec Tab) 40 mg PO 0600 [facility] [place] Last Admin: 05/10/17 05:24 Dose: 40 mg Warfarin Sodium (Coumadin) 7.5 mg PO 1800 [facility] [place] PRN Reason: Protocol - Labs Labs: 05/10/17 06:00 05/10/17 06:00 PT 12.2 Seconds (9.9-11.8) H 05/10/17 06:30 INR 1.13 (0.93-1.08) H 05/10/17 06:30 APTT 64.8 Seconds (23.7-30.8) H 05/10/17 06:00 - Constitutional Appears: No Acute Distress - Head Exam Head Exam: NORMAL INSPECTION, NORMOCEPHALIC - Eye Exam Eye Exam: EOMI, Normal appearance - ENT Exam ENT Exam: Mucous Membranes Moist, Normal Exam - Neck Exam Neck Exam: Full ROM - Respiratory Exam Respiratory Exam: Clear to Ausculation Bilateral, NORMAL BREATHING PATTERN. absent: Rales, Rhonchi, Wheezes - Cardiovascular Exam Cardiovascular Exam: REGULAR RHYTHM, RRR, +S1, +S2 - GI/Abdominal Exam GI & Abdominal Exam: absent: Distended, Tenderness - Extremities Exam Extremities Exam: absent: Calf Tenderness, Pedal Edema - Neurological Exam Neurological Exam: Alert, Awake, Normal Gait, Oriented x3 - Psychiatric Exam Psychiatric exam: Normal Affect, Normal Mood - Skin Skin Exam: Dry, Intact, Normal Color, Warm Assessment and Plan - Assessment and Plan (Free Text) Assessment: 47yo male with history of tobacco use admitted for CVA and right sided hemiparesis 1. CVA/right sided hemiparesis -Continue aspirin, lipitor -Changed Coumadin to 7.5mg; INR was 1.13 today; will adjust based on INR -Discontinued heparin drip d/t intolerance; patient started on therapeutic Lovenox with neuro approval -Neurochecks q4h -Heart healthy diet -PT/OT discharged patient with no deficits 2. Cardiomyopathy -Cardiology on board -contacted EP consult about lifevest/AICD eval; coming tomorrow (05/11) -Will consider outpatient holter monitor to r/o paroxysmal a-fib based on EP consult -continue cozaar for blood pressure control 3. GI/DVT prophylaxis -Protonix/SCD's Patient seen and case discussed with attending physician, Dr. Ledbetter. <Larry Ledbetter - Last Filed: 05/11/17 06:51> Objective - Vital Signs/Intake and Output Vital Signs (last 24 hours): Temp Pulse Resp BP Pulse Ox 98 F 83 20 112/85 96 05/10/17 16:00 05/11/17 05:29 05/10/17 16:00 05/10/17 16:00 05/10/17 16:00 Intake and Output: 05/10/17 05/11/17 18:59 06:59 Intake Total 850 480 Balance 850 480 - Medications Medications: Current Medications Aspirin (Aspirin Chewable) 81 mg PO DAILY [facility] Last Admin: 05/10/17 09:12 Dose: 81 mg Atorvastatin Calcium (Lipitor) 40 mg PO DIN [facility] [place] Last Admin: 05/10/17 18:05 Dose: 40 mg Enoxaparin Sodium (Lovenox) 70 mg SC Q12H [facility] PRN Reason: Protocol Last Admin: 05/11/17 02:30 Dose: 70 mg Losartan Potassium (Cozaar) 12.5 mg PO DAILY [facility] [place] Last Admin: 05/10/17 09:13 Dose: 12.5 mg Metoprolol Tartrate (Lopressor) 25 mg PO BID [facility] [place] Last Admin: 05/10/17 18:05 Dose: 25 mg Nitroglycerin (Nitrostat Sl Tab) 0.4 mg SL Q5M PRN PRN Reason: cp Pantoprazole Sodium (Protonix Ec Tab) 40 mg PO 0600 [facility] [place] Last Admin: 05/11/17 05:26 Dose: 40 mg Warfarin Sodium (Coumadin) 7.5 mg PO 1800 [facility] [place] PRN Reason: Protocol Last Admin: 05/10/17 18:06 Dose: 7.5 mg - Labs Labs: 05/10/17 06:00 05/10/17 06:00 PT 12.2 Seconds (9.9-11.8) H 05/10/17 06:30 INR 1.13 (0.93-1.08) H 05/10/17 06:30 APTT 64.8 Seconds (23.7-30.8) H 05/10/17 06:00 Attending/Attestation - Attestation I have personally seen and examined this patient.: Yes I have fully participated in the care of the patient.: Yes I have reviewed all pertinent clinical information, including history, physical exam and plan: Yes Notes (Text): 05/10/17 47 year old male who presented with complaint of right sided weakness. Initial CT head was negative, however, MRI brain showed minimal acute lacunar infarct in the left frontal lobe. Carotid doppler and CTA head/neck were unremarkable. Echocardiogram showed EF of 13.7% with 4 chamber dilation and global hypokinesis. He is being following by cardiology and neurology. He is on aspirin and statin. He is on heparin drip which is switched to lovenox today. INR is still subtherapeutic this morning and coumadin will be increased. He will be seen by EP tomorrow. PT evaluation was appreciated. Continue with telemetry monitoring and consider outpatient holter monitor. Larry Ledbetter MD Hospitalist.
[2017-05-11] MEDS: Enoxaparin 80 mg Syringe SC SCH ×2 (02:30→13:11)
[2017-05-11] MEDS: Pantoprazole 40 mg EC Tab PO SCH (05:26)
[2017-05-11 08:12] LABS: BASO # 0.02 K/mm3 (0.0-2.0); BASO % 0.3 % (0.0-3.0); EOS # 0.1 (0.0-0.7); EOS % 1.8 % (1.5-5.0); GRAN # 3.43 (1.4-6.5); GRAN % 50.3 % (50.0-68.0); HEMOGLOBIN 12.9 gm/dL (14.0-18.0); LYMPH # 2.4 (1.2-3.4); LYMPH % 35.3 % (22.0-35.0); MEAN CELL VOLUME 90.8 fL (80.0-105.0); MEAN CORPUSCULAR HEMOGLOBIN 30.6 pg (25.0-35.0); MEAN CORPUSCULAR HGB CONC 33.7 g/dl (31.0-37.0); MEAN PLATELET VOLUME 10.4 fl (7.0-11.0); MONO # 0.8 (0.1-0.6); MONO % 12.3 % (1.0-6.0); PLATELET COUNT 210 10^3/uL (120.0-450.0); RBC 4.22 10^6/uL (3.5-6.1); WHITE BLOOD COUNT 6.8 10^3/ul (4.5-11.0)
[2017-05-11 08:23] LABS: INR 1.18 (0.93-1.08); PARTIAL THROMBOPLASTIN TIME 33.8 Seconds (23.7-30.8); PROTHROMBIN TIME 12.7 Seconds (9.9-11.8)
[2017-05-11 08:26] LABS: ALBUMIN 3.8 g/dL (3.0-4.8); ALT/SGPT 45 U/L (7-56); AST/SGOT 62 U/L (15-59); BLOOD UREA NITROGEN 10 mg/dL (7-21); CALCIUM 9.3 mg/dL (8.4-10.5); GFR AFRICAN-AMERICAN > 60; GFR NON-AFRICAN AMERICAN > 60
--- NOTE | 2017-05-11 14:41 | CP.PCM.CON ---
History of Present Illness - History of Present Illness History of Present Illness: Mr Lubin is a pleasant 47 year old AA male without prior PMH presents to ER with right sided weakness and numbness. As part of neuro work up, he underwent echocardiography and was found on ECHO to have an EF of less than 13%/ four chamber . He was also found to have MRI evidence of L frontal infarct. He denies chest pain, SOB or syncope. 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 Past Patient History - Past Medical History & Family History Past Medical History?: No - Past Social History Smoking Status: Heavy Smoker > 10 Cigarettes Daily Chewing Tobacco Use: No Cigar Use: No Alcohol: < 2 Drinks/Day Home Situation {Lives}: With Family - CARDIAC Hx Cardiac Disorders: No Hx Angina: No Hx Atrial Fibrillation: No Hx Cardia Arrhythmia: No Hx Circulatory Problems: No Hx Congestive Heart Failure: No Hx Heart Attack: No Hx Heart Murmur: No Hx Hypercholesterolemia: No Hx Hypertension: No Hx Hypotension: No Hx Internal Defibrillator: No Hx Mitral Valve Prolapse: No Hx Pacemaker: No Hx Peripheral Edema: No Hx Peripheral Vascular Disease: No - PULMONARY Hx Respiratory Disorders: No Hx Bronchitis: No Hx Emphysema: No Hx Lung Cancer: No Hx Pneumonia: No Hx Pulmonary Edema: No Hx Pulmonary Embolism: No Hx Respiratory Aspiration: No Hx Respiratory Tract Infection: No Hx Sleep Apnea: No Hx Tuberculosis: No - NEUROLOGICAL Hx Neurological Disorder: No Hx Alzheimer's Disease: No HX Cerebrovascular Accident: No Hx Dementia: No Hx Dizziness: No Hx Meningitis: No Hx Migraine: No Hx Multiple Sclerosis: No Hx Paralysis: No Hx Seizures: No Hx Syncope: No Hx Transient Ischemic Attacks (TIA): No - MUSCULOSKELETAL/RHEUMATOLOGICAL Hx Falls: No - PSYCHIATRIC Hx Substance Use: No - SURGICAL HISTORY Other/Comment: Left elbow sx Meds Allergies/Adverse Reactions: Allergies Allergy/AdvReac Type Severity Reaction Status Date / Time No Known Allergies Allergy Verified 05/06/17 17:49 - Medications Medications: Current Medications Aspirin (Aspirin Chewable) 81 mg PO DAILY [facility] Last Admin: 05/11/17 09:02 Dose: 81 mg Atorvastatin Calcium (Lipitor) 40 mg PO DIN [facility] Last Admin: 05/10/17 18:05 Dose: 40 mg Enoxaparin Sodium (Lovenox) 70 mg SC Q12H [facility] PRN Reason: Protocol Last Admin: 05/11/17 13:11 Dose: 70 mg Losartan Potassium (Cozaar) 12.5 mg PO DAILY [facility] Last Admin: 05/11/17 09:01 Dose: 12.5 mg Metoprolol Tartrate (Lopressor) 25 mg PO BID [facility] Last Admin: 05/11/17 09:01 Dose: 25 mg Nitroglycerin (Nitrostat Sl Tab) 0.4 mg SL Q5M PRN PRN Reason: cp Pantoprazole Sodium (Protonix Ec Tab) 40 mg PO 0600 [facility] Last Admin: 05/11/17 05:26 Dose: 40 mg Warfarin Sodium (Coumadin) 10 mg PO 1800 [facility] PRN Reason: Protocol Physical Exam - Head Exam Head Exam: ATRAUMATIC - Neck Exam Neck exam: Positive for: Full Rom - Respiratory Exam Respiratory Exam: NORMAL BREATHING PATTERN - Cardiovascular Exam Cardiovascular Exam: REGULAR RHYTHM - Psychiatric Exam Psychiatric exam: Normal Mood - Skin Skin Exam: Warm Results - Vital Signs Recent Vital Signs: Last Vital Signs Temp 98.2 F 05/11/17 08:18 Pulse 89 05/11/17 09:01 Resp 20 05/11/17 08:18 BP 112/81 05/11/17 09:01 Pulse Ox 97 05/11/17 08:18 - Labs Result Diagrams: 05/11/17 07:30 05/11/17 07:30 Labs: Laboratory Results - last 24 hr 05/11/17 05/11/17 05/11/17 07:30 07:30 07:30 WBC 6.8 D RBC 4.22 Hgb 12.9 L Hct 38.3 L MCV 90.8 MCH 30.6 MCHC 33.7 RDW 14.0 Plt Count 210 MPV 10.4 Gran % 50.3 Lymph % (Auto) 35.3 H Boundary % (Auto) 12.3 H Eos % (Auto) 1.8 Baso % (Auto) 0.3 Gran # 3.43 Lymph # 2.4 Boundary # 0.8 H Eos # 0.1 Baso # 0.02 PT 12.7 H INR 1.18 H APTT 33.8 H Sodium 135 Potassium 4.3 Chloride 102 Carbon Dioxide 26 Anion Gap 11 BUN 10 Creatinine 1.2 Est GFR ( Amer) > 60 Est GFR (Non-Af Amer) > 60 Random Glucose 92 Calcium 9.3 Total Bilirubin 0.7 AST 62 H ALT 45 Alkaline Phosphatase 62 Total Protein 7.6 Albumin 3.8 Globulin 3.8 Albumin/Globulin Ratio 1.0 L - EKG Data EKG shows normal: Sinus rhythm Rate: Normal - Impressions Impression: LAFB, incomplete RBBB, PPRWP, lateral T wave changes. Assessment & Plan - Assessment and Plan (Free Text) Assessment: 1) Dilated cardiomyopathy- minimal symptoms of HF at this time. Etiology is unclear. Further work up as per General Cardiolgy- Dr Rodríguez, Agree with maximizing medical therapy. If LV function doen not improve on maximal medical therapy he may require implantable AICD for primary prevention of SCD. In the mean time will offer [facility] during these three months. Discussed with patient in detail. 2) CVA- suspicion for cardiac embolism, agree with monitoring for atrial fibrillation, continue ati-platelet therapy as per Neuro service. 3)Tob abuse
--- NOTE | 2017-05-11 17:08 | CP.PCM.PN ---
<JESSICA MCALLISTER - Last Filed: 05/11/17 17:04> Subjective - Date & Time of Evaluation Date of Evaluation: 05/11/17 Time of Evaluation: 10:30 - Subjective Subjective: Medicine Progress Note: Pt was seen and assessed at bedside. Pt has no new complaints at this time. He reports that previous numbness and tingling in his lower extremity are no longer present. Pt denies headache, chest pain, shortness of breath, abdominal pain, weakness or numbess/tingling. Objective - Vital Signs/Intake and Output Vital Signs (last 24 hours): Temp Pulse Resp BP Pulse Ox 98.2 F 89 20 112/81 97 05/11/17 08:18 05/11/17 09:01 05/11/17 08:18 05/11/17 09:01 05/11/17 08:18 Intake and Output: 05/11/17 05/11/17 06:59 18:59 Intake Total 480 Balance 480 - Medications Medications: Current Medications Aspirin (Aspirin Chewable) 81 mg PO DAILY [facility] Last Admin: 05/11/17 09:02 Dose: 81 mg Atorvastatin Calcium (Lipitor) 40 mg PO DIN [facility] Last Admin: 05/10/17 18:05 Dose: 40 mg Enoxaparin Sodium (Lovenox) 70 mg SC Q12H [facility] PRN Reason: Protocol Last Admin: 05/11/17 13:11 Dose: 70 mg Losartan Potassium (Cozaar) 12.5 mg PO DAILY [facility] Last Admin: 05/11/17 09:01 Dose: 12.5 mg Metoprolol Tartrate (Lopressor) 25 mg PO BID [facility] Last Admin: 05/11/17 09:01 Dose: 25 mg Nitroglycerin (Nitrostat Sl Tab) 0.4 mg SL Q5M PRN PRN Reason: cp Pantoprazole Sodium (Protonix Ec Tab) 40 mg PO 0600 [facility] Last Admin: 05/11/17 05:26 Dose: 40 mg Warfarin Sodium (Coumadin) 10 mg PO 1800 [facility] PRN Reason: Protocol - Labs Labs: 05/11/17 07:30 05/11/17 07:30 PT 12.7 Seconds (9.9-11.8) H 05/11/17 07:30 INR 1.18 (0.93-1.08) H 05/11/17 07:30 APTT 33.8 Seconds (23.7-30.8) H 05/11/17 07:30 - Constitutional Appears: No Acute Distress - Head Exam Head Exam: NORMAL INSPECTION, NORMOCEPHALIC - Eye Exam Eye Exam: EOMI, Normal appearance - ENT Exam ENT Exam: Mucous Membranes Moist, Normal Exam - Neck Exam Neck Exam: Full ROM. absent: Lymphadenopathy - Respiratory Exam Respiratory Exam: Clear to Ausculation Bilateral, NORMAL BREATHING PATTERN. absent: Rales, Rhonchi, Wheezes - Cardiovascular Exam Cardiovascular Exam: REGULAR RHYTHM, +S1, +S2. absent: Murmur - GI/Abdominal Exam GI & Abdominal Exam: absent: Tenderness - Extremities Exam Extremities Exam: Joint Swelling. absent: Calf Tenderness, Pedal Edema - Neurological Exam Neurological Exam: Alert, Awake, Oriented x3 - Psychiatric Exam Psychiatric exam: Normal Affect, Normal Mood - Skin Skin Exam: Dry, Intact, Normal Color, Warm Assessment and Plan - Assessment and Plan (Free Text) Assessment: 47yo male with history of tobacco use admitted for CVA and right sided hemiparesis 1. CVA/right sided hemiparesis -Continue aspirin and lipitor -INR still subtherapeutic at 1.18 so Coumadin increased from 7.5mg to 10mg -Patient started on therapeutic lovenox and is tolerating without complications -continue to monitor INR -Neurochecks q4 -Heart healthy diet 2. Dilated Cardiomyopathy -Cardiology on board -per EP, may consider AICD if LV function doesnt improve with maximal medical therapy -patient agreed with EP for holter monitor to r/o paroxysmal a-fib -continue cozaar 3. GI/DVT prophylaxis -Protonix/SCD's Patient seen and case discussed with attending physician, Dr. Ledbetter. <Larry Ledbetter - Last Filed: 05/12/17 06:51> Objective - Vital Signs/Intake and Output Vital Signs (last 24 hours): Temp Pulse Resp BP Pulse Ox 97.9 F 92 H 20 114/81 98 05/11/17 16:00 05/11/17 18:00 05/11/17 16:00 05/11/17 16:00 05/11/17 16:00 Intake and Output: 05/11/17 05/12/17 18:59 06:59 Intake Total 1080 Output Total 1300 Balance -220 - Medications Medications: Current Medications Aspirin (Aspirin Chewable) 81 mg PO DAILY [facility] Last Admin: 05/11/17 09:02 Dose: 81 mg Atorvastatin Calcium (Lipitor) 40 mg PO DIN [facility] Last Admin: 05/11/17 17:23 Dose: 40 mg Enoxaparin Sodium (Lovenox) 70 mg SC Q12H [facility] PRN Reason: Protocol Last Admin: 05/11/17 13:11 Dose: 70 mg Losartan Potassium (Cozaar) 12.5 mg PO DAILY [facility] Last Admin: 05/11/17 09:01 Dose: 12.5 mg Metoprolol Tartrate (Lopressor) 25 mg PO BID [facility] Last Admin: 05/11/17 17:24 Dose: 25 mg Nitroglycerin (Nitrostat Sl Tab) 0.4 mg SL Q5M PRN PRN Reason: cp Pantoprazole Sodium (Protonix Ec Tab) 40 mg PO 0600 [facility] Last Admin: 05/11/17 05:26 Dose: 40 mg Warfarin Sodium (Coumadin) 10 mg PO 1800 [facility] PRN Reason: Protocol Last Admin: 05/11/17 17:23 Dose: 10 mg - Labs Labs: 05/11/17 07:30 05/11/17 07:30 PT 12.7 Seconds (9.9-11.8) H 05/11/17 07:30 INR 1.18 (0.93-1.08) H 05/11/17 07:30 APTT 33.8 Seconds (23.7-30.8) H 05/11/17 07:30 Attending/Attestation - Attestation I have personally seen and examined this patient.: Yes I have fully participated in the care of the patient.: Yes I have reviewed all pertinent clinical information, including history, physical exam and plan: Yes Notes (Text): 05/11/17 47 year old male who presented with complaint of right sided weakness. Initial CT head was negative, however, MRI brain showed minimal acute lacunar infarct in the left frontal lobe. Carotid doppler and CTA head/neck were unremarkable. Echocardiogram showed EF of 13.7% with 4 chamber dilation and global hypokinesis. He is being following by cardiology and neurology. PT evaluation was also appreciated. He is on aspirin and statin. He is on lovenox and coumadin. INR this morning is still subtherapeutic and coumadin will be increased to 10 mg. He was seen by EP today. Continue with telemetry monitoring and consider outpatient holter monitor. Larry Ledbetter MD Hospitalist.
[2017-05-12 08:08] LABS: INR 1.43 (0.93-1.08); PROTHROMBIN TIME 15.4 Seconds (9.9-11.8)
--- NOTE | 2017-05-12 12:44 | CP.PCM.PN ---
<Gabriel Angel - Last Filed: 05/12/17 13:24> Subjective - Date & Time of Evaluation Date of Evaluation: 05/12/17 Time of Evaluation: 09:00 - Subjective Subjective: Patient seen and examined at bedside. No acute events overnight. Patient is resting comfortably in bed. States he feels better overall. Denies fever, chills , chest pain, SOB, abdominal pain, N/V. Objective - Vital Signs/Intake and Output Vital Signs (last 24 hours): Temp Pulse Resp BP Pulse Ox 97.9 F 84 20 114/86 98 05/11/17 16:00 05/12/17 10:12 05/11/17 16:00 05/12/17 10:12 05/11/17 16:00 Intake and Output: 05/12/17 05/12/17 06:59 18:59 Intake Total 1080 120 Output Total 1300 Balance -220 120 - Medications Medications: Current Medications Aspirin (Aspirin Chewable) 81 mg PO DAILY [facility] Last Admin: 05/12/17 10:11 Dose: 81 mg Atorvastatin Calcium (Lipitor) 40 mg PO DIN [facility] Last Admin: 05/11/17 17:23 Dose: 40 mg Enoxaparin Sodium (Lovenox) 70 mg SC Q12H [facility] PRN Reason: Protocol Last Admin: 05/11/17 13:11 Dose: 70 mg Losartan Potassium (Cozaar) 12.5 mg PO DAILY [facility] Last Admin: 05/12/17 10:12 Dose: 12.5 mg Metoprolol Tartrate (Lopressor) 25 mg PO BID [facility] Last Admin: 05/12/17 10:11 Dose: 25 mg Nitroglycerin (Nitrostat Sl Tab) 0.4 mg SL Q5M PRN PRN Reason: cp Pantoprazole Sodium (Protonix Ec Tab) 40 mg PO 0600 [facility] Last Admin: 05/11/17 05:26 Dose: 40 mg Warfarin Sodium (Coumadin) 10 mg PO 1800 [facility] PRN Reason: Protocol Last Admin: 05/11/17 17:23 Dose: 10 mg - Labs Labs: 05/11/17 07:30 05/11/17 07:30 PT 15.4 Seconds (9.9-11.8) H 05/12/17 07:00 INR 1.43 (0.93-1.08) H 05/12/17 07:00 APTT 33.8 Seconds (23.7-30.8) H 05/11/17 07:30 - Additional Findings Additional findings: - Constitutional Appears: No Acute Distress - Head Exam Head Exam: NORMAL INSPECTION, NORMOCEPHALIC - Eye Exam Eye Exam: EOMI, Normal appearance - ENT Exam ENT Exam: Mucous Membranes Moist, Normal Exam - Neck Exam Neck Exam: Full ROM - Respiratory Exam Respiratory Exam: Clear to Ausculation Bilateral, NORMAL BREATHING PATTERN. absent: Rales, Rhonchi, Wheezes - Cardiovascular Exam Cardiovascular Exam: REGULAR RHYTHM, RRR, +S1, +S2 - GI/Abdominal Exam GI & Abdominal Exam: absent: Distended, Tenderness - Extremities Exam Extremities Exam: absent: Calf Tenderness, Pedal Edema - Neurological Exam Neurological Exam: Alert, Awake, Normal Gait, Oriented x3, patient responds to verbal stimuli, answers questions appropriately, and follows commands - Psychiatric Exam Psychiatric exam: Normal Affect, Normal Mood - Skin Skin Exam: Dry, Intact, Normal Color, Warm Assessment and Plan - Assessment and Plan (Free Text) Assessment: 47yo male with history of tobacco use admitted for evaluation and treatment of CVA and right sided hemiparesis Plan: 1. CVA/right sided hemiparesis -Continue aspirin, lipitor -Continue Coumadin 10 mg; INR was 1.43 today; repeat tomorrow- will adjust according to INR -Discontinued heparin drip d/t intolerance; patient started on therapeutic Lovenox with neuro approval -inContact q4h -Heart healthy diet -PT/OT discharged patient with no deficits 2. Cardiomyopathy -Cardiology following patient - as per cardio if LV function doen not improve on maximal medical therapy he may require implantable AICD for primary prevention of SCD. -patient education provided regarding lifevest/AICD -outpatient holter monitor to r/o paroxysmal a-fib -continue metoprolol and losartan for blood pressure control Patient seen, evaluated, and discussed with attending, Dr. Ledbetter <Larry Ledbetter - Last Filed: 05/12/17 14:06> Objective - Vital Signs/Intake and Output Vital Signs (last 24 hours): Temp Pulse Resp BP Pulse Ox 97.9 F 84 20 114/86 98 05/11/17 16:00 05/12/17 10:12 05/11/17 16:00 05/12/17 10:12 05/11/17 16:00 Intake and Output: 05/12/17 05/12/17 06:59 18:59 Intake Total 1080 120 Output Total 1300 Balance -220 120 - Medications Medications: Current Medications Aspirin (Aspirin Chewable) 81 mg PO DAILY [facility] Last Admin: 05/12/17 10:11 Dose: 81 mg Atorvastatin Calcium (Lipitor) 40 mg PO DIN [facility] Last Admin: 05/11/17 17:23 Dose: 40 mg Enoxaparin Sodium (Lovenox) 70 mg SC Q12H [facility] PRN Reason: Protocol Last Admin: 05/12/17 13:40 Dose: 70 mg Losartan Potassium (Cozaar) 12.5 mg PO DAILY [facility] Last Admin: 05/12/17 10:12 Dose: 12.5 mg Metoprolol Tartrate (Lopressor) 25 mg PO BID [facility] Last Admin: 05/12/17 10:11 Dose: 25 mg Nitroglycerin (Nitrostat Sl Tab) 0.4 mg SL Q5M PRN PRN Reason: cp Pantoprazole Sodium (Protonix Ec Tab) 40 mg PO 0600 [facility] Last Admin: 05/11/17 05:26 Dose: 40 mg Warfarin Sodium (Coumadin) 10 mg PO 1800 [facility] PRN Reason: Protocol Last Admin: 05/11/17 17:23 Dose: 10 mg - Labs Labs: 05/11/17 07:30 05/11/17 07:30 PT 15.4 Seconds (9.9-11.8) H 05/12/17 07:00 INR 1.43 (0.93-1.08) H 05/12/17 07:00 APTT 33.8 Seconds (23.7-30.8) H 05/11/17 07:30 Attending/Attestation - Attestation I have personally seen and examined this patient.: Yes I have fully participated in the care of the patient.: Yes I have reviewed all pertinent clinical information, including history, physical exam and plan: Yes Notes (Text): 05/12/17 14:04 47 year old male who presented with complaint of right sided weakness. Initial CT head was negative, however, MRI brain showed minimal acute lacunar infarct in the left frontal lobe. Carotid doppler and CTA head/neck were unremarkable. Echocardiogram showed EF of 13.7% with 4 chamber dilation and global hypokinesis. He is being following by cardiology and neurology. PT evaluation was also appreciated. He is on aspirin, cozaar, metoprolol and statin. He is on lovenox and coumadin. INR today is 1.43. EP evaluation was appreciated. Education was provided regarding lifevest and AICD. Continue with telemetry monitoring and consider outpatient holter monitor. Larry Ledbetter MD Hospitalist.
[2017-05-12] MEDS: Enoxaparin 80 mg Syringe SC SCH ×2 (13:32→13:40)
[2017-05-13] MEDS: Enoxaparin 80 mg Syringe SC SCH ×3 (00:44→13:41)
[2017-05-13] MEDS: Pantoprazole 40 mg EC Tab PO SCH (05:45)
[2017-05-13 07:50] LABS: BLOOD UREA NITROGEN 14 mg/dL (7-21); CALCIUM 9.5 mg/dL (8.4-10.5); GFR AFRICAN-AMERICAN > 60; GFR NON-AFRICAN AMERICAN > 60
[2017-05-13 07:59] LABS: BASO # 0.01 K/mm3 (0.0-2.0); BASO % 0.2 % (0.0-3.0); EOS # 0.1 (0.0-0.7); GRAN # 3.52 (1.4-6.5); GRAN % 53.4 % (50.0-68.0); HEMOGLOBIN 13.2 gm/dL (14.0-18.0); LYMPH # 2.1 (1.2-3.4); LYMPH % 32.3 % (22.0-35.0); MEAN CELL VOLUME 90.5 fL (80.0-105.0); MEAN CORPUSCULAR HEMOGLOBIN 30.6 pg (25.0-35.0); MEAN CORPUSCULAR HGB CONC 33.8 g/dl (31.0-37.0); MEAN PLATELET VOLUME 10.3 fl (7.0-11.0); MONO # 0.8 (0.1-0.6); MONO % 12.1 % (1.0-6.0); PLATELET COUNT 230 10^3/uL (120.0-450.0); RBC 4.31 10^6/uL (3.5-6.1); RED CELL DISTRIBUTION WIDTH 13.8 % (11.5-14.5); WHITE BLOOD COUNT 6.6 10^3/ul (4.5-11.0)
[2017-05-13 08:04] LABS: INR 1.83 (0.93-1.08); PROTHROMBIN TIME 19.8 Seconds (9.9-11.8)
[2017-05-13 08:54] VITALS: O2SAT 98
--- NOTE | 2017-05-13 12:00 | CP.PCM.PN ---
<Gabriel Angel - Last Filed: 05/13/17 12:10> Subjective - Date & Time of Evaluation Date of Evaluation: 05/13/17 Time of Evaluation: 10:00 - Subjective Subjective: Patient seen and examined at bedside. No acute events overnight. Patient is resting comfortably in bed. States he tried on lifevest. Understands that he requires additional INR correction. Denies fever, chills, chest pain, SOB, abdominal pain, N/V Objective - Vital Signs/Intake and Output Vital Signs (last 24 hours): Temp Pulse Resp BP Pulse Ox 98.2 F 90 18 110/99 H 98 05/13/17 06:00 05/13/17 10:13 05/13/17 06:00 05/13/17 10:13 05/13/17 06:00 Intake and Output: 05/13/17 05/13/17 06:59 18:59 Intake Total 900 Balance 900 - Medications Medications: Current Medications Aspirin (Aspirin Chewable) 81 mg PO DAILY [facility] Last Admin: 05/13/17 10:13 Dose: 81 mg Atorvastatin Calcium (Lipitor) 40 mg PO DIN [facility] Last Admin: 05/12/17 17:17 Dose: 40 mg Enoxaparin Sodium (Lovenox) 70 mg SC Q12H [facility] PRN Reason: Protocol Last Admin: 05/13/17 00:44 Dose: Not Given Losartan Potassium (Cozaar) 12.5 mg PO DAILY [facility] Last Admin: 05/13/17 10:13 Dose: 12.5 mg Metoprolol Tartrate (Lopressor) 25 mg PO BID [facility] Last Admin: 05/13/17 10:13 Dose: 25 mg Nitroglycerin (Nitrostat Sl Tab) 0.4 mg SL Q5M PRN PRN Reason: cp Pantoprazole Sodium (Protonix Ec Tab) 40 mg PO 0600 [facility] Last Admin: 05/13/17 05:45 Dose: 40 mg Warfarin Sodium (Coumadin) 10 mg PO 1800 [facility] PRN Reason: Protocol Last Admin: 05/12/17 17:18 Dose: 10 mg - Labs Labs: 05/13/17 07:00 05/13/17 07:00 PT 19.8 Seconds (9.9-11.8) H 05/13/17 07:00 INR 1.83 (0.93-1.08) H 05/13/17 07:00 APTT 33.8 Seconds (23.7-30.8) H 05/11/17 07:30 - Additional Findings Additional findings: - Constitutional Appears: No Acute Distress - Head Exam Head Exam: NORMAL INSPECTION, NORMOCEPHALIC - Eye Exam Eye Exam: EOMI, Normal appearance - ENT Exam ENT Exam: Mucous Membranes Moist, Normal Exam - Neck Exam Neck Exam: Full ROM - Respiratory Exam Respiratory Exam: Clear to Ausculation Bilateral, NORMAL BREATHING PATTERN. absent: Rales, Rhonchi, Wheezes - Cardiovascular Exam Cardiovascular Exam: REGULAR RHYTHM, RRR, +S1, +S2 - GI/Abdominal Exam GI & Abdominal Exam: absent: Distended, Tenderness - Extremities Exam Extremities Exam: absent: Calf Tenderness, Pedal Edema - Neurological Exam Neurological Exam: Alert, Awake, Normal Gait, Oriented x3, patient responds to verbal stimuli, answers questions appropriately, and follows commands - Psychiatric Exam Psychiatric exam: Normal Affect, Normal Mood - Skin Skin Exam: Dry, Intact, Normal Color, Warm Assessment and Plan - Assessment and Plan (Free Text) Assessment: Patient is a 47 year old male with history of tobacco use admitted for evaluation and treatment of CVA and right sided hemiparesis. Plan: 1. CVA/right sided hemiparesis -Continue aspirin, lipitor -Continue Coumadin 10 mg; INR was 1.83 today; repeat tomorrow- will adjust according to INR -Discontinued heparin drip d/t intolerance; patient started on therapeutic Lovenox with neuro approval -NeurocTagrules q4h -Heart healthy diet -PT/OT discharged patient with no deficits 2. Cardiomyopathy -Cardiology following patient - as per cardio if LV function doen not improve on maximal medical therapy he may require implantable AICD for primary prevention of SCD. -patient education provided regarding lifevest/AICD -outpatient holter monitor to r/o paroxysmal a-fib -continue metoprolol and losartan for blood pressure control Patient seen, evaluated, and discussed with attending, Dr. Ledbetter <Larry Ledbetter - Last Filed: 05/13/17 12:30> Objective - Vital Signs/Intake and Output Vital Signs (last 24 hours): Temp Pulse Resp BP Pulse Ox 98.2 F 90 18 110/99 H 98 05/13/17 06:00 05/13/17 10:13 05/13/17 06:00 05/13/17 10:13 05/13/17 06:00 Intake and Output: 05/13/17 05/13/17 06:59 18:59 Intake Total 900 Balance 900 - Medications Medications: Current Medications Aspirin (Aspirin Chewable) 81 mg PO DAILY [facility] Last Admin: 05/13/17 10:13 Dose: 81 mg Atorvastatin Calcium (Lipitor) 40 mg PO DIN [facility] Last Admin: 05/12/17 17:17 Dose: 40 mg Enoxaparin Sodium (Lovenox) 70 mg SC Q12H [facility] PRN Reason: Protocol Last Admin: 05/13/17 00:44 Dose: Not Given Losartan Potassium (Cozaar) 12.5 mg PO DAILY [facility] Last Admin: 05/13/17 10:13 Dose: 12.5 mg Metoprolol Tartrate (Lopressor) 25 mg PO BID [facility] Last Admin: 05/13/17 10:13 Dose: 25 mg Nitroglycerin (Nitrostat Sl Tab) 0.4 mg SL Q5M PRN PRN Reason: cp Pantoprazole Sodium (Protonix Ec Tab) 40 mg PO 0600 [facility] Last Admin: 05/13/17 05:45 Dose: 40 mg Warfarin Sodium (Coumadin) 10 mg PO 1800 [facility] PRN Reason: Protocol Last Admin: 05/12/17 17:18 Dose: 10 mg - Labs Labs: 05/13/17 07:00 05/13/17 07:00 PT 19.8 Seconds (9.9-11.8) H 05/13/17 07:00 INR 1.83 (0.93-1.08) H 05/13/17 07:00 APTT 33.8 Seconds (23.7-30.8) H 05/11/17 07:30 Attending/Attestation - Attestation I have personally seen and examined this patient.: Yes I have fully participated in the care of the patient.: Yes I have reviewed all pertinent clinical information, including history, physical exam and plan: Yes Notes (Text): 05/13/17 12:28 47 year old male who presented with complaint of right sided weakness. Initial CT head was negative, however, MRI brain showed minimal acute lacunar infarct in the left frontal lobe. Carotid doppler and CTA head/neck were unremarkable. Echocardiogram showed EF of 13.7% with 4 chamber dilation and global hypokinesis. He was seen by cardiology and neurology. PT evaluation was also appreciated. He is on aspirin, cozaar, metoprolol and statin. He is on lovenox and coumadin. INR today is 1.83. EP evaluation was appreciated. Education was provided regarding lifevest and AICD. Continue with telemetry monitoring and consider outpatient holter monitor. D/c planning possibly tomorrow if INR is therapeutic. Larry Ledbetter MD Hospitalist.
[2017-05-14] MEDS: Enoxaparin 80 mg Syringe SC SCH ×2 (01:50→13:23)
[2017-05-14] MEDS: Pantoprazole 40 mg EC Tab PO SCH (06:50)
[2017-05-14 07:31] LABS: INR 2.09 (0.93-1.08); PROTHROMBIN TIME 22.6 Seconds (9.9-11.8)
[2017-05-14 08:10] VITALS: BP 109/80; PULSE 96; RESP 18; TEMP 98.1
--- NOTE | 2017-05-14 15:00 | CP.PCM.DIS ---
<JESSICA MCALLISTER - Last Filed: 05/14/17 14:47> Provider - Provider Date of Admission: 05/07/17 18:01 Attending physician: Larry Ledbetter MD Primary care physician: NO PRIMARY CARE PROVIDER Consults: Neurology: Nicole Cardiology: Kriss Electrophysiology: Atul Time Spent in preparation of Discharge (in minutes): 52 Hospital Course - Lab Results Lab Results: Most Recent Lab Values WBC 6.6 10^3/ul (4.5-11.0) 05/13/17 07:00 RBC 4.31 10^6/uL (3.5-6.1) 05/13/17 07:00 Hgb 13.2 gm/dL (14.0-18.0) L 05/13/17 07:00 Hct 39.0 % (42.0-52.0) L 05/13/17 07:00 MCV 90.5 fL (80.0-105.0) 05/13/17 07:00 MCH 30.6 pg (25.0-35.0) 05/13/17 07:00 MCHC 33.8 g/dl (31.0-37.0) 05/13/17 07:00 RDW 13.8 % (11.5-14.5) 05/13/17 07:00 Plt Count 230 10^3/uL (120.0-450.0) 05/13/17 07:00 MPV 10.3 fl (7.0-11.0) 05/13/17 07:00 Gran % 53.4 % (50.0-68.0) 05/13/17 07:00 Lymph % (Auto) 32.3 % (22.0-35.0) 05/13/17 07:00 [place] % (Auto) 12.1 % (1.0-6.0) H 05/13/17 07:00 Eos % (Auto) 2.0 % (1.5-5.0) 05/13/17 07:00 Baso % (Auto) 0.2 % (0.0-3.0) 05/13/17 07:00 Gran # 3.52 (1.4-6.5) 05/13/17 07:00 Lymph # 2.1 (1.2-3.4) 05/13/17 07:00 [place] # 0.8 (0.1-0.6) H 05/13/17 07:00 Eos # 0.1 (0.0-0.7) 05/13/17 07:00 Baso # 0.01 K/mm3 (0.0-2.0) 05/13/17 07:00 ESR 25 mm/hr (0.0-15.0) H 05/08/17 10:00 PT 22.6 Seconds (9.9-11.8) H 05/14/17 06:40 INR 2.09 (0.93-1.08) H 05/14/17 06:40 APTT 33.8 Seconds (23.7-30.8) H 05/11/17 07:30 D-Dimer, Quantitative 0.86 mg/L FEU (0-0.50) H 05/07/17 07:00 Sodium 136 mmol/L (132-148) 05/13/17 07:00 Potassium 4.1 mmol/L (3.6-5.0) 05/13/17 07:00 Chloride 104 mmol/L (95-110) 05/13/17 07:00 Carbon Dioxide 23 mmol/L (21-33) 05/13/17 07:00 Anion Gap 13 (10-20) 05/13/17 07:00 BUN 14 mg/dL (7-21) 05/13/17 07:00 Creatinine 1.0 mg/dL (0.5-1.4) 05/13/17 07:00 Est GFR ( Amer) > 60 05/13/17 07:00 Est GFR (Non-Af Amer) > 60 05/13/17 07:00 POC Glucose (mg/dL) 79 mg/dL (65-110) 05/06/17 18:05 Random Glucose 93 mg/dL (70-110) 05/13/17 07:00 Hemoglobin A1c 6.5 % (4.2-6.5) 05/08/17 10:22 Calcium 9.5 mg/dL (8.4-10.5) 05/13/17 07:00 Total Bilirubin 0.7 mg/dL (0.2-1.3) 05/11/17 07:30 AST 62 U/L (15-59) H 05/11/17 07:30 ALT 45 U/L (7-56) 05/11/17 07:30 Alkaline Phosphatase 62 U/L (38-133) 05/11/17 07:30 Troponin I 0.23 ng/mL H* D 05/09/17 04:25 C-React Prot High Sens 6.30 mg/L (1.00-3.00) H 05/08/17 10:00 NT-Pro-B Natriuret Pep 885 pg/mL (0-450) H 05/07/17 07:00 Total Protein 7.6 g/dL (5.8-8.3) 05/11/17 07:30 Albumin 3.8 g/dL (3.0-4.8) 05/11/17 07:30 Globulin 3.8 gm/dL 05/11/17 07:30 Albumin/Globulin Ratio 1.0 (1.1-1.8) L 05/11/17 07:30 Triglycerides 155 mg/dL (35-160) 05/07/17 07:00 Cholesterol 285 mg/dL (130-200) H 05/07/17 07:00 LDL Cholesterol Direct 213 mg/dL (0-129) H 05/07/17 07:00 HDL Cholesterol 53 mg/dL (29-60) 05/07/17 07:00 Vitamin B12 419 pg/mL (239-931) 05/08/17 10:00 TSH 3rd Generation 3.45 mIU/mL (0.46-4.68) 05/08/17 10:00 Urine Color Yellow (YELLOW) 05/06/17 16:05 Urine Appearance Clear (CLEAR) 05/06/17 16:05 Urine pH 7.5 (4.7-8.0) 05/06/17 16:05 Ur Specific [place] 1.015 (1.005-1.035) 05/06/17 16:05 Urine Protein Negative mg/dL (<30 mg/dL) 05/06/17 16:05 Urine Glucose (UA) Negative mg/dL (NEGATIVE) 05/06/17 16:05 Urine Ketones Negative mg/dL (NEGATIVE) 05/06/17 16:05 Urine Blood Negative (NEGATIVE) 05/06/17 16:05 Urine Nitrate Negative (NEGATIVE) 05/06/17 16:05 Urine Bilirubin Negative (NEGATIVE) 05/06/17 16:05 Urine Urobilinogen 0.2 E.U./dL (<1 E.U./dL) 05/06/17 16:05 Ur Leukocyte Esterase Small [place]/uL (NEGATIVE) H 05/06/17 16:05 Urine RBC 1 - 3 /hpf (0-2) 05/06/17 16:05 Urine WBC 5 - 10 /hpf (0-6) 05/06/17 16:05 Ur Epithelial Cells 3 - 4 /hpf (0-5) 05/06/17 16:05 Urine Bacteria Mod (NEG) 05/06/17 16:05 Urine Opiates Screen Negative (NEGATIVE) 05/06/17 22:33 Urine Methadone Screen Negative (NEGATIVE) 05/06/17 22:33 Ur Barbiturates Screen Negative (NEGATIVE) 05/06/17 22:33 Ur Phencyclidine Scrn Negative (NEGATIVE) 05/06/17 22:33 Ur Amphetamines Screen Negative (NEGATIVE) 05/06/17 22:33 U Benzodiazepines Scrn Negative (NEGATIVE) 05/06/17 22:33 U Oth Cocaine Metabols Negative (NEGATIVE) 05/06/17 22:33 U Cannabinoids Screen Negative (NEGATIVE) 05/06/17 22:33 - Hospital Course Hospital Course: 47 year old male who presented with complaint of right sided weakness. Initial CT head was negative, however, MRI brain showed minimal acute lacunar infarct in the left frontal lobe. Carotid doppler and CTA head/neck were unremarkable. Echocardiogram showed EF of 13.7% with 4 chamber dilation and global hypokinesis. Patient had elevated troponins upon admission and cardiology was consulted, however they contributed the elevated troponins to his acute infarct. Neurology was consulted and suggested that the characteristic of the stroke was concerning for cardioembolic etiology as well as recommend outpatient prolonged cardiac monitoring with a Holter monitor or loop recorder. Neurology also recommended anti-coagulation therapy. Coumadin was started and patient was put on a heparin drip to bridge his INR to therapeutic range. After the patient was unable to tolerate the heparin drip due to numbness/tingling, he was placed on therapeutic lovenox until his INR was in therapeutic range. Due to his cardiomyopathy with low ejection fraction, cardiac electrophysiology was consulted and patient was put in lifevest treatment for 3 months and educated on when an AICD may be necessary. Physical therapy was also consulted and discharged patient with no defecits. - Date & Time of H&P Date of H&P: 05/07/17 Time of H&P: 00:35 Discharge Exam - Head Exam Head Exam: NORMAL INSPECTION, NORMOCEPHALIC - Eye Exam Eye Exam: EOMI, Normal appearance - ENT Exam ENT Exam: Mucous Membranes Moist, Normal Exam - Neck Exam Neck exam: Full Rom - Respiratory Exam Respiratory Exam: NORMAL BREATHING PATTERN, UNREMARKABLE. absent: Rales, Rhonchi, Wheezes - Cardiovascular Exam Cardiovascular Exam: REGULAR RHYTHM, RRR, +S1, +S2. absent: Systolic Murmur - GI/Abdominal Exam GI & Abdominal Exam: Normal Bowel Sounds - Extremities Exam Additional comments: No calf tenderness or lower extremity edema. - Neurological Exam Neurological exam: Alert, Normal Gait, Oriented x3 - Psychiatric Exam Psychiatric exam: Normal Affect, Normal Mood - Skin Skin Exam: Dry, Intact, Normal Color, Warm Discharge Plan - Discharge Medications Prescriptions: Aspirin [Aspirin Chewable] 81 mg PO DAILY #30 Atorvastatin [Lipitor] 40 mg PO DIN #30 tab Losartan [Cozaar] 12.5 mg PO DAILY #30 tab Metoprolol Tartrate [Lopressor] 25 mg PO BID #60 tab Warfarin [Coumadin] 7.5 mg PO 1800 #7 tab - Follow Up Plan Condition: STABLE Disposition: HOME/ ROUTINE Instructions: Warfarin (By mouth), Transient Ischemic Attack (GEN), Heart Failure (DC), How to Stop Smoking (DC), Ischemic Stroke (DC) Additional Instructions: 1. Follow up with the neurologist, Dr. Rivera in 1-2 weeks. 2. Follow up in [facility] on your scheduled appointment to check your INR 3. Follow up with the veterinary bacteriologist, Dr. Monterroso within 1-2 weeks of discharge. 4. Follow up with the [facility] veterinary bacteriologist, Dr. Pollard. 5. Fill any medications prescribed to you and take as directed If you experience any uncontrolled or excessive bleeding, slurred speech, arm drooping, numbness or tingling call your primary medical doctor or come back to the emergency room. Referrals: PCP,NO [Primary Care Provider] - <Larry Ldebetter - Last Filed: 05/14/17 15:14> Provider - Provider Date of Admission: 05/07/17 18:01 Attending physician: Larry Ledbetter MD Primary care physician: NO PRIMARY CARE PROVIDER Hospital Course - Lab Results Lab Results: Most Recent Lab Values WBC 6.6 10^3/ul (4.5-11.0) 05/13/17 07:00 RBC 4.31 10^6/uL (3.5-6.1) 05/13/17 07:00 Hgb 13.2 gm/dL (14.0-18.0) L 05/13/17 07:00 Hct 39.0 % (42.0-52.0) L 05/13/17 07:00 MCV 90.5 fL (80.0-105.0) 05/13/17 07:00 MCH 30.6 pg (25.0-35.0) 05/13/17 07:00 MCHC 33.8 g/dl (31.0-37.0) 05/13/17 07:00 RDW 13.8 % (11.5-14.5) 05/13/17 07:00 Plt Count 230 10^3/uL (120.0-450.0) 05/13/17 07:00 MPV 10.3 fl (7.0-11.0) 05/13/17 07:00 Gran % 53.4 % (50.0-68.0) 05/13/17 07:00 Lymph % (Auto) 32.3 % (22.0-35.0) 05/13/17 07:00 [place] % (Auto) 12.1 % (1.0-6.0) H 05/13/17 07:00 Eos % (Auto) 2.0 % (1.5-5.0) 05/13/17 07:00 Baso % (Auto) 0.2 % (0.0-3.0) 05/13/17 07:00 Gran # 3.52 (1.4-6.5) 05/13/17 07:00 Lymph # 2.1 (1.2-3.4) 05/13/17 07:00 [place] # 0.8 (0.1-0.6) H 05/13/17 07:00 Eos # 0.1 (0.0-0.7) 05/13/17 07:00 Baso # 0.01 K/mm3 (0.0-2.0) 05/13/17 07:00 ESR 25 mm/hr (0.0-15.0) H 05/08/17 10:00 PT 22.6 Seconds (9.9-11.8) H 05/14/17 06:40 INR 2.09 (0.93-1.08) H 05/14/17 06:40 APTT 33.8 Seconds (23.7-30.8) H 05/11/17 07:30 D-Dimer, Quantitative 0.86 mg/L FEU (0-0.50) H 05/07/17 07:00 Sodium 136 mmol/L (132-148) 05/13/17 07:00 Potassium 4.1 mmol/L (3.6-5.0) 05/13/17 07:00 Chloride 104 mmol/L (95-110) 05/13/17 07:00 Carbon Dioxide 23 mmol/L (21-33) 05/13/17 07:00 Anion Gap 13 (10-20) 05/13/17 07:00 BUN 14 mg/dL (7-21) 05/13/17 07:00 Creatinine 1.0 mg/dL (0.5-1.4) 05/13/17 07:00 Est GFR ( Amer) > 60 05/13/17 07:00 Est GFR (Non-Af Amer) > 60 05/13/17 07:00 POC Glucose (mg/dL) 79 mg/dL (65-110) 05/06/17 18:05 Random Glucose 93 mg/dL (70-110) 05/13/17 07:00 Hemoglobin A1c 6.5 % (4.2-6.5) 05/08/17 10:22 Calcium 9.5 mg/dL (8.4-10.5) 05/13/17 07:00 Total Bilirubin 0.7 mg/dL (0.2-1.3) 05/11/17 07:30 AST 62 U/L (15-59) H 05/11/17 07:30 ALT 45 U/L (7-56) 05/11/17 07:30 Alkaline Phosphatase 62 U/L (38-133) 05/11/17 07:30 Troponin I 0.23 ng/mL H* D 05/09/17 04:25 C-React Prot High Sens 6.30 mg/L (1.00-3.00) H 05/08/17 10:00 NT-Pro-B Natriuret Pep 885 pg/mL (0-450) H 05/07/17 07:00 Total Protein 7.6 g/dL (5.8-8.3) 05/11/17 07:30 Albumin 3.8 g/dL (3.0-4.8) 05/11/17 07:30 Globulin 3.8 gm/dL 05/11/17 07:30 Albumin/Globulin Ratio 1.0 (1.1-1.8) L 05/11/17 07:30 Triglycerides 155 mg/dL (35-160) 05/07/17 07:00 Cholesterol 285 mg/dL (130-200) H 05/07/17 07:00 LDL Cholesterol Direct 213 mg/dL (0-129) H 05/07/17 07:00 HDL Cholesterol 53 mg/dL (29-60) 05/07/17 07:00 Vitamin B12 419 pg/mL (239-931) 05/08/17 10:00 TSH 3rd Generation 3.45 mIU/mL (0.46-4.68) 05/08/17 10:00 Urine Color Yellow (YELLOW) 05/06/17 16:05 Urine Appearance Clear (CLEAR) 05/06/17 16:05 Urine pH 7.5 (4.7-8.0) 05/06/17 16:05 Ur Specific [place] 1.015 (1.005-1.035) 05/06/17 16:05 Urine Protein Negative mg/dL (<30 mg/dL) 05/06/17 16:05 Urine Glucose (UA) Negative mg/dL (NEGATIVE) 05/06/17 16:05 Urine Ketones Negative mg/dL (NEGATIVE) 05/06/17 16:05 Urine Blood Negative (NEGATIVE) 05/06/17 16:05 Urine Nitrate Negative (NEGATIVE) 05/06/17 16:05 Urine Bilirubin Negative (NEGATIVE) 05/06/17 16:05 Urine Urobilinogen 0.2 E.U./dL (<1 E.U./dL) 05/06/17 16:05 Ur Leukocyte Esterase Small [place]/uL (NEGATIVE) H 05/06/17 16:05 Urine RBC 1 - 3 /hpf (0-2) 05/06/17 16:05 Urine WBC 5 - 10 /hpf (0-6) 05/06/17 16:05 Ur Epithelial Cells 3 - 4 /hpf (0-5) 05/06/17 16:05 Urine Bacteria Mod (NEG) 05/06/17 16:05 Urine Opiates Screen Negative (NEGATIVE) 05/06/17 22:33 Urine Methadone Screen Negative (NEGATIVE) 05/06/17 22:33 Ur Barbiturates Screen Negative (NEGATIVE) 05/06/17 22:33 Ur Phencyclidine Scrn Negative (NEGATIVE) 05/06/17 22:33 Ur Amphetamines Screen Negative (NEGATIVE) 05/06/17 22:33 U Benzodiazepines Scrn Negative (NEGATIVE) 05/06/17 22:33 U Oth Cocaine Metabols Negative (NEGATIVE) 05/06/17 22:33 U Cannabinoids Screen Negative (NEGATIVE) 05/06/17 22:33 Attending/Attestation - Attestation I have personally seen and examined this patient.: Yes I have fully participated in the care of the patient.: Yes I have reviewed all pertinent clinical information, including history, physical exam and plan: Yes Notes (Text): 05/14/17 15:11 47 year old male who presented with complaint of right sided weakness. His initial CT head was negative, however, MRI brain showed minimal acute lacunar infarct in the left frontal lobe. Carotid doppler and CTA head/neck were unremarkable. Echocardiogram showed EF of 13.7% with 4 chamber dilation and global hypokinesis. He was seen by cardiology and neurology. He was started on aspirin, cozaar, metoprolol and statin as well as lovenox and coumadin for anticoagulation. Today INR is therapeutic. He was seen by EP and lifevest was applied. Patient will be discharged home today. Follow up with [facility] this week for INR checks. Follow up with cardiology and EP. Repeat echo in 3-6 months for re-evaluation for AICD. Counselled on smoking abstinence. Larry Ledbetter MD Hospitalist.
== END 2017-05-14 14:36 | disposition home or self-care (01) | DRG 65 ==
LOC: ED 17:37 → ERH 21:50 → 3RNO 05-07 00:47 → OBSVTOIN 05-07 18:01 → 3RNO 05-09 06:06
PROVIDERS: ADMIT Internal Medicine; ATTEND Internal Medicine
DX: I63.9 Cerebral infarction, unspecified (principal); G81.91 Hemiplegia, unspecified affecting right dominant side; I42.0 Dilated cardiomyopathy; I44.4 Left anterior fascicular block; E78.5 Hyperlipidemia, unspecified; I10 Essential (primary) hypertension; Z72.0 Tobacco use

== ENCOUNTER 2017-05-14 20:24 | Inpatient (IN) | payer MEDICAID, OTHER ==
[2017-05-14 20:25] VITALS: BMI 23.6
[2017-05-14] MEDS ORDERED: Morphine 2 mg/ml ISec IVP STA (20:55)
--- NOTE | 2017-05-14 21:13 | ED PDOC ---
Arrival/HPI - General Chief Complaint: Chest Pain Time Seen by Provider: 05/14/17 20:38 Historian: Patient - History of Present Illness Narrative History of Present Illness (Text): 05/14/17 21:03 Lavon Lubin is a 47 year old male who presents to the emergency department complaining of chest pain, bilateral shoulder pain and ear pain for past few hours. Patient was recently admitted to the hospital for evaluation of right sided weakness and was discharged home earlier today. He had a echocardiagram done in the hospital which showed as 13.7% EF and 4 chamber dilation. He was started on Aspirin, Cozaar, Metoprolol, statin, Lovenox and Coumadin. Patient states that pain developed after lifting a case of water bottles. Denies any fever, chills, headache, dizziness, weakness, shortness of breath, back pain, nausea, vomiting, diarrhea, or any other complaints at this time. Time/Duration: 1-3 hours Symptom Onset: Sudden Symptom Course: Unchanged Severity Level: Mild Activities at Onset: Light Context: Home Past Medical History - Provider Review Nursing Documentation Reviewed: Yes - Infectious Disease Hx of Infectious Diseases: None - Cardiac Hx Cardiac Disorders: No Hx Angina: No Hx Atrial Fibrillation: No Hx Cardiac Arrhythmia: No Hx Circulatory Problems: No Hx Congestive Heart Failure: No Hx PR: No Hx Heart Murmur: No Hx Hypertension: No Hx Hypotension: No Hx Internal Defibrillator: No Hx Mitral Valve Prolapse: No Hx Pacemaker: No Hx Peripheral Edema: No Hx Peripheral Vascular Disease: No - Pulmonary Hx Respiratory Disorders: No Hx Bronchitis: No Hx Emphysema: No Hx Lung Cancer: No Hx Pneumonia: No Hx Pulmonary Edema: No Hx Pulmonary Embolism: No Hx Respiratory Aspiration: No Hx Respiratory Tract Infection: No Hx Sleep Apnea: No Hx Tuberculosis: No - Neurological Hx Transient Ischemic Attacks (TIA): Yes - Musculoskeletal/Rheumatological Hx Falls: No - Psychiatric Hx Substance Use: No - Surgical History Other/Comment: Left elbow sx Family/Social History - Physician Review Nursing Documentation Reviewed: Yes Family/Social History: No Known Family HX Smoking Status: Heavy Smoker > 10 Cigarettes Daily Hx Alcohol Use: Yes Hx Substance Use: No Allergies/Home Meds Allergies/Adverse Reactions: Allergies No Known Allergies Allergy (Verified 05/14/17 20:52) Review of Systems - Physician Review All systems were reviewed & negative as marked: Yes - Review of Systems Constitutional: Normal. absent: Fatigue, Fevers ENT: Other (Ear pain ) Respiratory: absent: SOB, Cough, Sputum Cardiovascular: Chest Pain Gastrointestinal: Normal. absent: Abdominal Pain, Diarrhea, Nausea, Vomiting Musculoskeletal: Other (b/l shoulder pain ) Neurological: Normal. absent: Headache Psychiatric: Normal Physical Exam Vital Signs Reviewed: Yes Vital Signs Temp Pulse Resp BP Pulse Ox 05/15/17 00:27 121/82 05/14/17 20:49 98.7 F 90 20 100 05/14/17 20:48 98.7 F 90 220 H 121/82 98 Temperature: Afebrile Blood Pressure: Normal Pulse: Regular Respiratory Rate: Normal Appearance: Positive for: Well-Appearing, Non-Toxic, Comfortable Pain Distress: None Mental Status: Positive for: Alert and Oriented X 3 - Systems Exam Head: Present: Atraumatic, Normocephalic Pupils: Present: PERRL Conjunctiva: Present: Normal Mouth: Present: Moist Mucous Membranes Respiratory/Chest: Present: Clear to Auscultation, Good Air Exchange. No: Respiratory Distress, Accessory Muscle Use Cardiovascular: Present: Regular Rate and Rhythm, Normal S1, S2. No: Murmurs Abdomen: Present: Normal Bowel Sounds. No: Tenderness, Distention, Peritoneal Signs Upper Extremity: Present: Normal Inspection. No: Cyanosis, Edema Lower Extremity: Present: Normal Inspection. No: Edema Neurological: Present: GCS=15, CN II-XII Intact, Speech Normal, Motor Func Grossly Intact, Normal Sensory Function Skin: Present: Warm, Dry, Normal Color. No: Rashes Psychiatric: Present: Alert, Oriented x 3, Normal Insight, Normal Concentration Medical Decision Making ED Course and Treatment: 05/14/17 21:15 Impression: A 47 year old male who presents to the emergency department complaining of chest pain, b/l shoulder pain, and ear pain which developed few hours prior to arrival. Plan: -- EKG -- Labs, cardiac enzymes -- Chest X-ray -- Morphine -- Urinalysis -- Reassess and disposition Progress Notes: 05/14/17 21:15 EKG reviewed by me: NSR @ 94 bpm. Biatrial enlargement. Left anterior fascicular block. T wave abnormality. Prolonged QT. 05/14/17 23:[address] Hernandez who is aware and agrees with the plan to observe patient at telemetry for chest pain. Accepts patient under hospitalist service. - Lab Interpretations Microbiology Results: Microbiology Results 05/14/17 23:10 Urine,Clean Catch Urine Culture - Final No Growth (<1,000 CFU/ML) Lab Results: 05/14/17 21:12 05/14/17 21:12 Lab Results 05/15/17 10:00: PT 17.5 H, INR 1.62 H, APTT 32.0 H 05/15/17 10:00: Troponin I 2.46 H* 05/15/17 03:08: Hepatitis A IgM Ab Negative, Hep Bs Antigen Negative, Hep B Core IgM Ab Negative, Hepatitis C Antibody Negative 05/15/17 03:08: Troponin I 2.71 H* D 05/14/17 21:12: Total Creatine Kinase 136, NT-Pro-B Natriuret Pep 357 05/14/17 21:12: Sodium 136, Potassium 4.2, Chloride 102, Carbon Dioxide 25, Anion Gap 13, BUN 14, Creatinine 1.1, Est GFR ( Amer) > 60, Est GFR (Non- Af Amer) > 60, Random Glucose 101, Calcium 9.5, Magnesium 2.1, Total Bilirubin 0.4, AST 96 H, ALT 155 H, Alkaline Phosphatase 63, Lactate Dehydrogenase 785 H, Total Creatine Kinase 126, Troponin I 0.31 H* D, Total Protein 8.3, Albumin 4.3 , Globulin 3.9, Albumin/Globulin Ratio 1.1 05/14/17 21:12: WBC 8.5 D, RBC 4.47, Hgb 13.8 L, Hct 40.5 L, MCV 90.6, MCH 30.9 , MCHC 34.1, RDW 13.8, Plt Count 270, MPV 10.3, Gran % 59.6, Lymph % (Auto) 30.0 , [place] % (Auto) 8.9 H, Eos % (Auto) 1.3 L, Baso % (Auto) 0.2, Gran # 5.04, Lymph # 2.5, [place] # 0.8 H, Eos # 0.1, Baso # 0.02 05/14/17 20:54: Urine Color Yellow, Urine Appearance Clear, Urine pH 6.0, Ur Specific [place] 1.025, Urine Protein Negative, Urine Glucose (UA) Negative, Urine Ketones Negative, Urine Blood Negative, Urine Nitrate Negative, Urine Bilirubin Negative, Urine Urobilinogen 0.2, Ur Leukocyte Esterase Trace H, Urine RBC 0 - 2, Urine WBC 0 - 2, Ur Epithelial Cells 0 - 2, Urine Bacteria Rare - RAD Interpretation Radiology Orders: 05/14/17 20:55 CHEST PORTABLE [RAD] Stat 05/15/17 01:59 HEAD W/CONTRAST [CT] Stat 05/15/17 09:23 ANGIO CHEST PE PROTOCOL [CT] Urgent - Medication Orders Current Medication Orders: Aspirin (Aspirin Chewable) 81 mg PO DAILY [facility] Last Admin: 05/17/17 09:05 Dose: 81 mg Atorvastatin Calcium (Lipitor) 40 mg PO DIN [facility] Last Admin: 05/17/17 17:47 Dose: 40 mg Enoxaparin Sodium (Lovenox) 70 mg SC Q12H [facility] PRN Reason: Protocol Last Admin: 05/18/17 05:04 Dose: 70 mg Losartan Potassium (Cozaar) 12.5 mg PO DAILY [facility] Last Admin: 05/17/17 09:05 Dose: 12.5 mg Metoprolol Tartrate (Lopressor) 25 mg PO BID [facility] Last Admin: 05/17/17 17:47 Dose: 25 mg Pantoprazole Sodium (Protonix Ec Tab) 40 mg PO 0600 [facility] Last Admin: 05/18/17 05:05 Dose: 40 mg Warfarin Sodium (Coumadin) 10 mg PO 1800 [facility] PRN Reason: Protocol Last Admin: 05/17/17 17:47 Dose: 10 mg Discontinued Medications Fentanyl (Fentanyl) Confirm Administered Dose 100 mcg .ROUTE .STK-MED ONE Stop: 05/16/17 11:34 Last Admin: 05/16/17 12:47 Dose: Not Given Non-Admin Reason: Patient in Cardiology Heparin Sodium (Porcine) (Heparin 1000 Units/500 Ml Ns) Confirm Administered Dose 1,500 mls @ ud IV .STK-MED ONE Stop: 05/16/17 11:25 Last Admin: 05/16/17 12:48 Dose: Not Given Non-Admin Reason: Patient in Cardiology Iohexol (Omnipaque 350 100 Ml) Confirm Administered Dose 350 mg .ROUTE .STK-MED ONE Stop: 05/15/17 08:48 Iohexol (Omnipaque 350 150 Ml) Confirm Administered Dose 150 ml .ROUTE .STK-MED ONE Stop: 05/16/17 11:34 Last Admin: 05/16/17 12:48 Dose: Not Given Non-Admin Reason: Patient in Cardiology Lidocaine HCl (Lidocaine 2% 20ml Vial) Confirm Administered Dose 20 ml .ROUTE .STK-MED ONE Stop: 05/16/17 11:24 Last Admin: 05/16/17 11:45 Dose: 8 ml Comments: 8mls given by dr beauchamp to right groin Midazolam HCl (Versed Inj) Confirm Administered Dose 2 mg .ROUTE .STK-MED ONE Stop: 05/16/17 11:33 Last Admin: 05/16/17 11:43 Dose: 1 mg Comments: 1mg of versed given by dr. sales for sedation Morphine Sulfate (Morphine) 2 mg IVP STAT STA Stop: 05/14/17 20:56 Last Admin: 05/14/17 21:05 Dose: 2 mg Re-Assess: [facility] Pain Assessment Document 05/14/17 22:05 OCS (Rec: 05/14/17 23:32 [facility] [id number]) Pain Reassessment Is this a pain reassessment? Yes Sleep Is patient sleeping during reassessment? Yes Presence of Pain Presence of Pain No Morphine Sulfate (Morphine) 2 mg IVP STAT STA Stop: 05/15/17 00:01 Last Admin: 05/15/17 00:15 Dose: 2 mg Pantoprazole Sodium (Protonix Ec Tab) 20 mg PO ONCE ONE Stop: 05/15/17 01:51 Last Admin: 05/15/17 20:16 Dose: Not Given Non-Admin Reason: Patient Refused Pantoprazole Sodium (Protonix Ec Tab) 20 mg PO 0600,1600 [facility] Stop: 05/17/17 06:01 Last Admin: 05/15/17 05:55 Dose: 20 mg Warfarin Sodium (Coumadin) 7.5 mg PO 1800 [facility] PRN Reason: Protocol Last Admin: 05/15/17 17:23 Dose: 7.5 mg - Shimonibe Statement The provider has reviewed the documentation as recorded by the Genoveva Schaefer Provider Attestation: Provider Scribe Attestation: All medical record entries made by the Shimonibrahat were at my direction and personally dictated by me. I have reviewed the chart and agree that the record accurately reflects my personal performance of the history, physical exam, medical decision making, and the department course for this patient. I have also personally directed, reviewed, and agree with the discharge instructions and disposition. Disposition/Present on Arrival - Present on Arrival Any Indicators Present on Arrival: No History of DVT/PE: No History of Uncontrolled Diabetes: No Urinary Catheter: No History of Decub. Ulcer: No History Surgical Site Infection Following: None - Disposition Have Diagnosis and Disposition been Completed?: Yes Diagnosis: Chest pain Disposition: HOSPITALIZED Disposition Time: 23:45 Condition: FAIR
[2017-05-14 21:30] LABS: BASO # 0.02 K/mm3 (0.0-2.0); BASO % 0.2 % (0.0-3.0); EOS # 0.1 (0.0-0.7); EOS % 1.3 % (1.5-5.0); GRAN # 5.04 (1.4-6.5); GRAN % 59.6 % (50.0-68.0); HEMOGLOBIN 13.8 gm/dL (14.0-18.0); LYMPH # 2.5 (1.2-3.4); MEAN CELL VOLUME 90.6 fL (80.0-105.0); MEAN CORPUSCULAR HEMOGLOBIN 30.9 pg (25.0-35.0); MEAN CORPUSCULAR HGB CONC 34.1 g/dl (31.0-37.0); MEAN PLATELET VOLUME 10.3 fl (7.0-11.0); MONO # 0.8 (0.1-0.6); MONO % 8.9 % (1.0-6.0); PLATELET COUNT 270 10^3/uL (120.0-450.0); RBC 4.47 10^6/uL (3.5-6.1); RED CELL DISTRIBUTION WIDTH 13.8 % (11.5-14.5); WHITE BLOOD COUNT 8.5 10^3/ul (4.5-11.0)
[2017-05-14 21:35] LABS: ALB/GLOB RATIO 1.1 (1.1-1.8); ALBUMIN 4.3 g/dL (3.0-4.8); ALT/SGPT 155 U/L (7-56); AST/SGOT 96 U/L (15-59); BLOOD UREA NITROGEN 14 mg/dL (7-21); CALCIUM 9.5 mg/dL (8.4-10.5); GFR AFRICAN-AMERICAN > 60; GFR NON-AFRICAN AMERICAN > 60; MAGNESIUM 2.1 mg/dL (1.7-2.2)
[2017-05-14 21:50] LABS: TROPONIN I 0.31 ng/mL
[2017-05-14 23:54] LABS: URINE BILIRUBIN NEGATIVE (NEGATIVE); URINE BLOOD NEGATIVE (NEGATIVE); URINE GLUCOSE (UA) NEGATIVE (NEGATIVE); URINE LEUKOCYTE ESTERASE TRACE Leu/uL (NEGATIVE); URINE NITRATE NEGATIVE (NEGATIVE); URINE PROTEIN NEGATIVE mg/dL (<30 mg/dL); URINE UROBILINOGEN 0.2 E.U./dL (<1 E.U./dL)
[2017-05-14 23:57] LABS: URINE APPEARANCE CLEAR (CLEAR); URINE COLOR YELLOW (YELLOW)
[2017-05-14 23:57] LABS: B-TYPE NATRIURETIC PEPTIDE 357 pg/mL (0-450)
[2017-05-15] MEDS ORDERED: Morphine 2 mg/ml ISec IVP STA
[2017-05-15 00:17] LABS: URINE EPITHELIAL CELLS 0 - 2 /hpf (0-5); URINE RBC 0 - 2 /hpf (0-2); URINE WBC 0 - 2 /hpf (0-6)
[2017-05-15 00:18] LABS: URINE BACTERIA RARE (NEG)
--- NOTE | 2017-05-15 01:28 | CP.PCM.HP ---
<Quinn Arce - Last Filed: 05/15/17 02:07> History of Present Illness - History of Present Illness History of Present Illness: Quinn Arec DO PGY - 1 HPI: Mr. Lubin is a 47 y/o M with a pertinent PMHx of recent TIA (d/c on ) who presented with c/o head, shoulders, and neck pain. Mr. Lubin stated that the pain was throbby, began at 3pm on 05/14/17, radiated between his head, shoulders, and neck, and had an intensity of 10/10. Nothing at home made it better or worse, but morphine in the ED brought the pain from a 10 to a 5. Mr. Lubin further admitted to [facility] with the same features. Mr. Lubin denied fevers, chills, nausea, vomiting, diarrhea, and sob. Mr. Lubin further denied any loss of sensation, any numbness, any tingling, any focal weakness, or any other symptoms. SurgHx: Left arm surgeries PMHx: See HPI; patient denies any other medical hx, but doesn't routinely see his physician All: NKDA SocHx: Smokes lightly; Hx/o alcohol abuse; denies illicits FamHx: Non-contributory Medications: Coumadin, ASA, Metoprolol, Losartan, Atorvastatin Present on Admission - Present on Admission Any Indicators Present on Admission: No Review of Systems - Review of Systems Review of Systems: ROS Constitutional: pt denies fever, chills, generalized weakness Head: +patient admits headache; ENT: pt denies dysphagia, ofalgia, hearing deficit, rhinorrhea Eyes: pt denies sudden loss of vision, diplopia, blurred vision MSK: +pt admits neck pain; pt denies joint pain, extremity cramping Cardio: +pt admits right sided chest pain; pt denies sob, dvt Pulm: pt denies cough, hemoptysis, wheeze GI: pt denies loss of appetite, abdominal pain, constipation, melena, n/v/d : pt denies burning on urination, urinary frequency, hematuria, urinary urgency Neuro: pt denies paresis, paresthesia, dizziness, tinsley, numbness, tingling Derm: pt denies skin changes, lesions, nail changes Endo: pt denies intolerance to heat/cold, diaphoresis, night sweats, polydipsia Psych: pt denies anxiety, depression, mood changes Past Patient History - Infectious Disease Hx of Infectious Diseases: None - Past Medical History & Family History Past Medical History?: No - Past Social History Smoking Status: Heavy Smoker > 10 Cigarettes Daily - CARDIAC Hx Cardiac Disorders: No Hx Angina: No Hx Atrial Fibrillation: No Hx Cardia Arrhythmia: No Hx Circulatory Problems: No Hx Congestive Heart Failure: No Hx Heart Attack: No Hx Heart Murmur: No Hx Hypertension: No Hx Hypotension: No Hx Internal Defibrillator: No Hx Mitral Valve Prolapse: No Hx Pacemaker: No Hx Peripheral Edema: No Hx Peripheral Vascular Disease: No - PULMONARY Hx Respiratory Disorders: No Hx Bronchitis: No Hx Emphysema: No Hx Lung Cancer: No Hx Pneumonia: No Hx Pulmonary Edema: No Hx Pulmonary Embolism: No Hx Respiratory Aspiration: No Hx Respiratory Tract Infection: No Hx Sleep Apnea: No Hx Tuberculosis: No - NEUROLOGICAL Hx Transient Ischemic Attacks (TIA): Yes - MUSCULOSKELETAL/RHEUMATOLOGICAL Hx Falls: No - PSYCHIATRIC Hx Substance Use: No - SURGICAL HISTORY Other/Comment: Left elbow sx Meds Allergies/Adverse Reactions: Allergies Allergy/AdvReac Type Severity Reaction Status Date / Time No Known Allergies Allergy Verified 05/14/17 20:52 Physical Exam - Additional Findings Additional findings: Physical Exam: VS: As above Constitutional: well appearing male, a&o x 4, nad Head and Neck: no jvd, trachea midline, carotid midline, no cervical/head mass Eyes: dian, nonicteric sclera, eom intact ENT: auditory acuity grossly intact, throat not congested, no nasal deformity Cardio: rrr, no m/r/g, no carotid bruit, nml s1, s2 Pulm: no accessory muscle use, equal nml breath sounds bilaterally, ctab Abd: s/nt/nd, nbs x 4 q, no palpable masses Derm: no rashes, no ulcers, no lesions Extr: no edema, no cyanosis, no calf tenderness, no lesions, no varicosities Neuro: cn II-XII grossly intact, ue and le 3+ muscle strength bilaterally, no los ue, le bilaterally and core Results - Vital Signs Recent Vital Signs: Last Vital Signs Temp 98.7 F 05/14/17 20:49 Pulse 90 05/15/17 00:45 Resp 20 05/15/17 00:45 BP 117/82 05/15/17 00:45 Pulse Ox 100 05/15/17 00:45 - Labs Result Diagrams: 05/14/17 21:12 05/14/17 21:12 Assessment & Plan - Assessment and Plan (Free Text) Assessment: A/P: 1.) Head and Neck Pain likely 2/2 TIA VS CVA VS Musculoskeletal Pain VS Unknown Etiology - EKG shows no new changes (compared to last hospital visit, 05/05 - 05/14/17 ) - Tropes elevated, but comparable to most recent stay (05/05-05/14/17) - Old ECHO shows 13% EF - Old Carotid doppler shows 30% stenosis - Neuro C/s - Cardio C/s 2.) Right Sided Chest Pain likely 2/2 Musculoskeletal VS Ischemic VS Unknown Etiology - Cardiac tests as in #1 - Cardio C/s - Trend tropes and EKG 3.) Hx/O TIA - Continue Home Coumadin - Continue Home ASA - Continue Home Metoprolol - Continue Home Losartan - Continue Home Atorvastatin 4.) DVT PPHXS - SCD's 5.) GI PPHXS - Protonix 6.) Diet - Heart Healthy <Stefanie Hernandez - Last Filed: 05/15/17 04:03> Results - Vital Signs Recent Vital Signs: Last Vital Signs Temp 97.7 F 05/15/17 00:54 Pulse 83 05/15/17 02:00 Resp 20 05/15/17 00:54 BP 117/74 05/15/17 00:54 Pulse Ox 100 05/15/17 00:45 - Labs Result Diagrams: 05/14/17 21:12 05/14/17 21:12 Labs: Laboratory Results - last 24 hr 05/15/17 03:08 Troponin I 2.71 H* D Attending/Attestation - Attestation I have personally seen and examined this patient.: Yes I have fully participated in the care of the patient.: Yes I have reviewed all pertinent clinical information: Yes Notes (Text): 05/15/17 04:02 Patient was seen when he was in the ER in bed # 7. Agree with history , physical examination , assessment and plan.
[2017-05-15] MEDS ORDERED: Pantoprazole 20 mg EC Tab PO ONE (01:50)
[2017-05-15] MEDS ORDERED: Pantoprazole 20 mg EC Tab PO SCH (06:00)
--- NOTE | 2017-05-15 08:01 | RAD ---
HISTORY: cp COMPARISON: 05/06/2017 FINDINGS: LUNGS: No active pulmonary disease. PLEURA: No significant pleural effusion identified, no pneumothorax apparent. CARDIOVASCULAR: Normal. OSSEOUS STRUCTURES: No significant abnormalities. VISUALIZED UPPER ABDOMEN: Normal. OTHER FINDINGS: None. IMPRESSION: No active disease.
[2017-05-15] MEDS ORDERED: Iohexol 350 MG/100 ML VIAL ONE (08:47)
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
[2017-05-15 10:52] LABS: INR 1.62 (0.93-1.08); PROTHROMBIN TIME 17.5 Seconds (9.9-11.8)
--- NOTE | 2017-05-15 12:33 | CARD ---
APPROVED REPORT EKG Measurement Heart [id number] NC 178P43 [id number] <Conclusion> Normal sinus rhythm Possible Left atrial enlargement Left anterior fascicular block T wave changes, consider lat ischemia Abnormal ECG
--- NOTE | 2017-05-15 12:39 | CARD ---
APPROVED REPORT EKG Measurement Heart [id number] 182P16 [id number] <Conclusion> Normal sinus rhythm Left axis deviation Can not R/o INferior wall NJ of undetrmine age T wave changes Consider lat Ischemia, co relate clinically Abnormal ECG
--- NOTE | 2017-05-15 12:43 | CARD ---
APPROVED REPORT EKG Measurement Heart [id number] MT 180P44 [id number] <Conclusion> Normal sinus rhythm Biatrial enlargement RSR' or QR pattern in V1 suggests right ventricular conduction delay Left anterior fascicular block T wave abnormality, consider lateral ischemia Prolonged QT Abnormal ECG
--- NOTE | 2017-05-15 13:23 | CP.PCM.CON ---
History of Present Illness - History of Present Illness History of Present Illness: 47 year old male admitted with Rt. sided chest pain, bilateral shoulder pain and ear pain for past few hours. Patient was recently admitted to the hospital for evaluation of right sided weakness , Brain MRI Lt frontal Lacunar infarct. Echocardiagram done in the hospital which showed as 13.7% EF and 4 chamber dilation. He was started on Aspirin, Patient was discharged on coumadin Past Patient History - Infectious Disease Hx of Infectious Diseases: None - Tetanus Immunizations Tetanus Immunization: Unknown - Past Medical History & Family History Past Medical History?: No - Past Social History Smoking Status: Heavy Smoker > 10 Cigarettes Daily Alcohol: Other (HEAVY) Drugs: Denies Home Situation {Lives}: With Family - CARDIAC Hx Cardiac Disorders: No Hx Angina: No Hx Atrial Fibrillation: No Hx Cardia Arrhythmia: No Hx Circulatory Problems: No Hx Congestive Heart Failure: No Hx Heart Attack: No Hx Heart Murmur: No Hx Hypertension: No Hx Hypotension: No Hx Internal Defibrillator: No Hx Mitral Valve Prolapse: No Hx Pacemaker: No Hx Peripheral Edema: No Hx Peripheral Vascular Disease: No - PULMONARY Hx Respiratory Disorders: No Hx Bronchitis: No Hx Emphysema: No Hx Lung Cancer: No Hx Pneumonia: No Hx Pulmonary Edema: No Hx Pulmonary Embolism: No Hx Respiratory Aspiration: No Hx Respiratory Tract Infection: No Hx Sleep Apnea: No Hx Tuberculosis: No - NEUROLOGICAL Hx Transient Ischemic Attacks (TIA): Yes - MUSCULOSKELETAL/RHEUMATOLOGICAL Hx Falls: No - PSYCHIATRIC Hx Substance Use: No - SURGICAL HISTORY Other/Comment: Left elbow sx Meds Allergies/Adverse Reactions: Allergies Allergy/AdvReac Type Severity Reaction Status Date / Time No Known Allergies Allergy Verified 05/14/17 20:52 - Medications Medications: Current Medications Aspirin (Aspirin Chewable) 81 mg PO DAILY [facility] Last Admin: 05/15/17 09:31 Dose: 81 mg Atorvastatin Calcium (Lipitor) 40 mg PO DIN [facility] Losartan Potassium (Cozaar) 12.5 mg PO DAILY [facility] Last Admin: 05/15/17 09:32 Dose: 12.5 mg Metoprolol Tartrate (Lopressor) 25 mg PO BID [facility] Last Admin: 05/15/17 09:31 Dose: 25 mg Pantoprazole Sodium (Protonix Ec Tab) 40 mg PO 0600 [facility] Warfarin Sodium (Coumadin) 7.5 mg PO 1800 [facility] PRN Reason: Protocol Physical Exam - Head Exam Head Exam: NORMAL INSPECTION - Eye Exam Eye Exam: Normal appearance - ENT Exam ENT Exam: Normal External Ear Exam - Neck Exam Neck exam: Positive for: Normal Inspection - Respiratory Exam Respiratory Exam: Decreased Breath Sounds - Cardiovascular Exam Cardiovascular Exam: Gallop, REGULAR RHYTHM - GI/Abdominal Exam GI & Abdominal Exam: Soft - Extremities Exam Extremities exam: Positive for: normal inspection Results - Vital Signs Recent Vital Signs: Last Vital Signs Temp 98.1 F 05/15/17 11:47 Pulse 72 05/15/17 11:47 Resp 20 05/15/17 11:47 BP 110/80 05/15/17 11:47 Pulse Ox 99 05/15/17 06:00 - Labs Result Diagrams: 05/14/17 21:12 05/14/17 21:12 Labs: Laboratory Results - last 24 hr 05/15/17 05/15/17 03:08 10:00 PT 17.5 H INR 1.62 H APTT 32.0 H Troponin I 2.71 H* D Assessment & Plan - Assessment and Plan (Free Text) Assessment: C/P EKG NSR,LAFB, lateral ischemia Dilated CM Recent CVA, Lt Frontal Lacunar infarct Plan: Cont Aspirin (Aspirin Chewable) 81 mg PO DAILY [facility] Last Admin: 05/15/17 09:31 Dose: 81 mg Atorvastatin Calcium (Lipitor) 40 mg PO DIN [facility] Losartan Potassium (Cozaar) 12.5 mg PO DAILY [facility] Last Admin: 05/15/17 09:32 Dose: 12.5 mg Metoprolol Tartrate (Lopressor) 25 mg PO BID [facility] Last Admin: 05/15/17 09:31 Dose: 25 mg Pantoprazole Sodium (Protonix Ec Tab) 40 mg PO 0600 [facility] Warfarin Sodium (Coumadin) 7.5 mg PO 1800 [facility] PRN Reason: Protocol Discussed with PGY and Jimena Carpenter Chest CT Angio Cath if Neuro cleared
[2017-05-15 14:23] LABS: HEPATITIS B SURFACE AG NEGATIVE (NEGATIVE)
[2017-05-15 14:24] LABS: HEPATITIS A IGM NEGATIVE (NEGATIVE)
[2017-05-15 14:25] LABS: HEPATITIS B CORE AB NEGATIVE (NEGATIVE)
[2017-05-15 14:33] LABS: HEPATITIS C ANTIBODY NEGATIVE (NEGATIVE)
--- NOTE | 2017-05-15 14:43 | CT ---
PROCEDURE: CT HEAD WITH CONTRAST HISTORY: poss TIA COMPARISON: None available. TECHNIQUE: Axial computed tomography images were obtained through the head/brain with intravenous contrast. Contrast dose: 150 cc of Omni 350 Radiation dose: Total exam DLP = 734 mGy-cm. This CT exam was performed using one or more of the following dose reduction techniques: Automated exposure control, adjustment of the mA and/or kV according to patient size, and/or use of iterative reconstruction technique. FINDINGS: HEMORRHAGE: No intracranial hemorrhage. BRAIN: No mass, mass effect or edema. No abnormal intracranial enhancement. No atrophy or chronic microvascular ischemic changes. VENTRICLES: Unremarkable. No hydrocephalus. CALVARIUM: Unremarkable. PARANASAL SINUSES: Unremarkable as visualized. No significant inflammatory changes. MASTOID AIR CELLS: Unremarkable as visualized. No mastoid effusion. OTHER FINDINGS: None. IMPRESSION: Normal contrast enhanced CT of the head.
--- NOTE | 2017-05-15 15:23 | CT ---
PROCEDURE: CT Chest with contrast (Pulmonary Angiogram) HISTORY: r/o PE COMPARISON: None available. TECHNIQUE: Axial computed tomography images were obtained of the chest in the pulmonary arterial phase of enhancement. Coronal and sagittal reformatted images were created and reviewed. Intravenous contrast dose: 150 cc of Omni 350 Radiation dose: Total exam DLP = 575 mGy-cm. This CT exam was performed using one or more of the following dose reduction techniques: Automated exposure control, adjustment of the mA and/or kV according to patient size, and/or use of iterative reconstruction technique. FINDINGS: PULMONARY ARTERIES: Unremarkable. No pulmonary embolism. AORTA: No acute findings. No thoracic aortic aneurysm. LUNGS: Unremarkable. No nodule, mass or pulmonary consolidation. PLEURAL SPACES: Unremarkable. No effusion or pneuomothorax. HEART: Unremarkable. No cardiomegaly. No significant pericardial effusion. LYMPH NODES: No lymphadenopathy. BONES, CHEST WALL: Unremarkable. No fracture or destructive lesion OTHER FINDINGS: Unremarkable. IMPRESSION: Unremarkable CT pulmonary angiogram. No pulmonary embolus.
[2017-05-15 16:56] LABS: BARBITURATES, UR NEGATIVE (NEGATIVE); BENZODIAZEPINES, UR NEGATIVE (NEGATIVE); OPIATES, UR POSITIVE (NEGATIVE); PHENCYCLIDINE, UR NEGATIVE (NEGATIVE)
[2017-05-16] MEDS: Pantoprazole 40 mg EC Tab PO SCH (05:40)
[2017-05-16 07:32] LABS: BASO # 0.02 K/mm3 (0.0-2.0); BASO % 0.3 % (0.0-3.0); EOS # 0.1 (0.0-0.7); EOS % 1.4 % (1.5-5.0); GRAN # 3.72 (1.4-6.5); GRAN % 51.1 % (50.0-68.0); HEMOGLOBIN 12.8 gm/dL (14.0-18.0); LYMPH # 2.6 (1.2-3.4); MEAN CELL VOLUME 90.6 fL (80.0-105.0); MEAN CORPUSCULAR HEMOGLOBIN 30.2 pg (25.0-35.0); MEAN CORPUSCULAR HGB CONC 33.3 g/dl (31.0-37.0); MEAN PLATELET VOLUME 10.1 fl (7.0-11.0); MONO # 0.9 (0.1-0.6); MONO % 12.2 % (1.0-6.0); PLATELET COUNT 285 10^3/uL (120.0-450.0); RBC 4.24 10^6/uL (3.5-6.1); RED CELL DISTRIBUTION WIDTH 13.9 % (11.5-14.5); WHITE BLOOD COUNT 7.3 10^3/ul (4.5-11.0)
[2017-05-16 07:35] LABS: INR 1.56 (0.93-1.08); PROTHROMBIN TIME 16.8 Seconds (9.9-11.8)
[2017-05-16 07:41] LABS: ALB/GLOB RATIO 1.1 (1.1-1.8); ALT/SGPT 129 U/L (7-56); AST/SGOT 96 U/L (15-59); BLOOD UREA NITROGEN 15 mg/dL (7-21); CALCIUM 9.3 mg/dL (8.4-10.5); GFR AFRICAN-AMERICAN > 60; GFR NON-AFRICAN AMERICAN > 60
[2017-05-16] MEDS: Midazolam 2 MG/2 ML VIAL ONE ×2 (11:43→12:48)
[2017-05-16] MEDS: Lidocaine 2% Inj (20ml) ONE ×2 (11:45→12:48)
--- NOTE | 2017-05-16 16:07 | CP.PCM.PN ---
<JESSICA MCLALISTER - Last Filed: 05/16/17 16:21> Subjective - Date & Time of Evaluation Date of Evaluation: 05/16/17 Time of Evaluation: 11:15 - Subjective Subjective: Medicine Progress Note: Pt seen and assessed at bedside. Pt reports that previously chest pain and numbness/tingling no longer present. Pt denies headache, changes in vision, fever, dysphagia, chest pain, palpitations, shortness of breath, cough, hemoptysis, N/V, abdominal pain, numbness, tingling or weakness. Objective - Vital Signs/Intake and Output Vital Signs (last 24 hours): Temp Pulse Resp BP Pulse Ox 98.6 F 83 16 115/71 98 05/16/17 12:30 05/16/17 15:15 05/16/17 15:15 05/16/17 15:15 05/16/17 12:30 Intake and Output: 05/16/17 05/16/17 06:59 18:59 Intake Total 240 Output Total 0 Balance 240 - Medications Medications: Current Medications Aspirin (Aspirin Chewable) 81 mg PO DAILY [facility] Last Admin: 05/16/17 10:39 Dose: 81 mg Atorvastatin Calcium (Lipitor) 40 mg PO DIN [facility] Last Admin: 05/15/17 17:22 Dose: 40 mg Losartan Potassium (Cozaar) 12.5 mg PO DAILY [facility] Last Admin: 05/16/17 10:39 Dose: 12.5 mg Metoprolol Tartrate (Lopressor) 25 mg PO BID [facility] Last Admin: 05/16/17 10:39 Dose: 25 mg Pantoprazole Sodium (Protonix Ec Tab) 40 mg PO 0600 [facility] Last Admin: 05/16/17 05:40 Dose: Not Given Warfarin Sodium (Coumadin) 7.5 mg PO 1800 [facility] PRN Reason: Protocol Last Admin: 05/15/17 17:23 Dose: 7.5 mg - Labs Labs: 05/16/17 07:05 05/16/17 07:05 PT 16.8 Seconds (9.9-11.8) H 05/16/17 07:05 INR 1.56 (0.93-1.08) H 05/16/17 07:05 APTT 32.0 Seconds (23.7-30.8) H 05/15/17 10:00 - Constitutional Appears: No Acute Distress - Head Exam Head Exam: NORMAL INSPECTION - Eye Exam Eye Exam: EOMI, Normal appearance Pupil Exam: NORMAL ACCOMODATION - ENT Exam ENT Exam: Mucous Membranes Moist, Normal Exam - Neck Exam Neck Exam: Full ROM - Respiratory Exam Respiratory Exam: Clear to Ausculation Bilateral, NORMAL BREATHING PATTERN. absent: Rales, Rhonchi, Wheezes, Respiratory Distress - Cardiovascular Exam Cardiovascular Exam: REGULAR RHYTHM, +S1, +S2. absent: Murmur - GI/Abdominal Exam GI & Abdominal Exam: Normal Bowel Sounds. absent: Distended, Tenderness - Exam Bimanual exam: NORMAL BIMANUAL EXAM - Extremities Exam Extremities Exam: absent: Calf Tenderness, Pedal Edema - Neurological Exam Neurological Exam: Alert, Awake, Normal Gait - Psychiatric Exam Psychiatric exam: Normal Affect, Normal Mood - Skin Skin Exam: Dry, Intact, Normal Color, Warm Assessment and Plan - Assessment and Plan (Free Text) Assessment: Patient is a 47 y/o with PMH of Dilated cardiomyopathy, dyslipidemia, tobacco abuse, recently discharged with left frontal lobe punctuate infarct (05/14) presents with headache and chest pain. Plan: 1. Headache -CT head was negative for any acute process -neurology consulted, less likely TIA per note -previous MRI of Brain showed acute lacunar infarct of left frontal lobe -continue with lipitor, coumadin and ASA 2. Chest Pain -troponins 0.31, 2.71 and 2.46 -cardiology consulted -CXR and CT Angio Chest both negative, ECG showing lateral ischemia and nonspecific T wave changes -awaiting cardiac cath results (05/16) -continue ASA, Lipitor and coumadin -PT recommending cardiac rehab -recent ECHO showing dilated cardiomyopathy with EF of 13% 3. Elevated Liver Enzymes -hepatitis panel negative -patient currently asymptomatic -will monitor with daily CMP and consider GI consult based on trend 4. GI/DVT Prophylaxis -protonix/SCD's Patient seen and case discussed with attending physician, Dr. Hess. <Franklin Hess - Last Filed: 05/16/17 17:25> Objective - Vital Signs/Intake and Output Vital Signs (last 24 hours): Temp Pulse Resp BP Pulse Ox 98.6 F 83 16 115/71 98 05/16/17 12:30 05/16/17 15:15 05/16/17 15:15 05/16/17 15:15 05/16/17 12:30 Intake and Output: 05/16/17 05/16/17 06:59 18:59 Intake Total 240 Output Total 0 Balance 240 - Medications Medications: Current Medications Aspirin (Aspirin Chewable) 81 mg PO DAILY [facility] Last Admin: 05/16/17 10:39 Dose: 81 mg Atorvastatin Calcium (Lipitor) 40 mg PO DIN [facility] Last Admin: 05/15/17 17:22 Dose: 40 mg Losartan Potassium (Cozaar) 12.5 mg PO DAILY [facility] Last Admin: 05/16/17 10:39 Dose: 12.5 mg Metoprolol Tartrate (Lopressor) 25 mg PO BID [facility] Last Admin: 05/16/17 10:39 Dose: 25 mg Pantoprazole Sodium (Protonix Ec Tab) 40 mg PO 0600 [facility] Last Admin: 05/16/17 05:40 Dose: Not Given Warfarin Sodium (Coumadin) 7.5 mg PO 1800 [facility] PRN Reason: Protocol Last Admin: 05/15/17 17:23 Dose: 7.5 mg - Labs Labs: 05/16/17 07:05 05/16/17 07:05 PT 16.8 Seconds (9.9-11.8) H 05/16/17 07:05 INR 1.56 (0.93-1.08) H 05/16/17 07:05 APTT 32.0 Seconds (23.7-30.8) H 05/15/17 10:00 Attending/Attestation - Attestation I have personally seen and examined this patient.: Yes I have fully participated in the care of the patient.: Yes I have reviewed all pertinent clinical information, including history, physical exam and plan: Yes Notes (Text): 05/16/17 17:21 Attending note; patient seen and examined with resident. Patient is a 47 y/o with PMH of Dilated cardiomyopathy, dyslipidemia, tobacco abuse, recently discharged with left frontal lobe punctuate infarct (05/14) presents with headache and chest pain. Elevated troponin; plan for cardiac cath today. Case discussed with Dr. Monterroso in detail. Patient has LifeVest to avoid arrythmia and sudden cardiac . PT evaluation appreciated. Outpatient cardiac rehabilitation recommended. Patient is advised to complete [facility] [place] paperwork. [place] [facility] [place] addendum; Patient seen post cardiac cath. Catheterization did not reveal any significant stenosis. patient was strongly advised to follow up with [facility] for AICD evaluation/cardiac transplant. The diagnosis and follow-up plan discussed with patient, patient's mother and patient's girlfriend in detail. 05/16/17 17:24
[2017-05-17] MEDS: Pantoprazole 40 mg EC Tab PO SCH (06:47)
[2017-05-17 07:49] LABS: BASO # 0.03 K/mm3 (0.0-2.0); BASO % 0.4 % (0.0-3.0); EOS # 0.1 (0.0-0.7); EOS % 1.3 % (1.5-5.0); GRAN # 4.35 (1.4-6.5); GRAN % 54.9 % (50.0-68.0); HEMOGLOBIN 13.2 gm/dL (14.0-18.0); INR 1.44 (0.93-1.08); LYMPH # 2.6 (1.2-3.4); LYMPH % 32.7 % (22.0-35.0); MEAN CELL VOLUME 91.2 fL (80.0-105.0); MEAN CORPUSCULAR HEMOGLOBIN 30.6 pg (25.0-35.0); MEAN CORPUSCULAR HGB CONC 33.5 g/dl (31.0-37.0); MEAN PLATELET VOLUME 9.9 fl (7.0-11.0); MONO # 0.9 (0.1-0.6); MONO % 10.7 % (1.0-6.0); PLATELET COUNT 299 10^3/uL (120.0-450.0); PROTHROMBIN TIME 15.5 Seconds (9.9-11.8); RBC 4.32 10^6/uL (3.5-6.1); RED CELL DISTRIBUTION WIDTH 13.9 % (11.5-14.5); WHITE BLOOD COUNT 7.9 10^3/ul (4.5-11.0)
[2017-05-17 08:04] LABS: ALB/GLOB RATIO 1.1 (1.1-1.8); ALT/SGPT 108 U/L (7-56); AST/SGOT 62 U/L (15-59); BLOOD UREA NITROGEN 15 mg/dL (7-21); CALCIUM 9.4 mg/dL (8.4-10.5); GFR AFRICAN-AMERICAN > 60; GFR NON-AFRICAN AMERICAN > 60
[2017-05-17] MEDS: Enoxaparin 80 mg Syringe SC SCH (13:17)
--- NOTE | 2017-05-17 14:38 | CP.PCM.PN ---
<JESSICA MCALLISTER - Last Filed: 05/17/17 14:44> Subjective - Date & Time of Evaluation Date of Evaluation: 05/17/17 Time of Evaluation: 10:30 - Subjective Subjective: Medicine Progress Note: Pt seen and assessed at bedside. Pt had no new complaints and no acute events overnight. Pt denies headache, changes in vision, fever, chest pain, shortness of breath, abdominal pain or numbness/tingling/weakness in any extremities. Objective - Vital Signs/Intake and Output Vital Signs (last 24 hours): Temp Pulse Resp BP Pulse Ox 98.2 F 78 20 95/60 L 99 05/17/17 12:00 05/17/17 12:00 05/17/17 12:00 05/17/17 12:00 05/17/17 06:00 Intake and Output: 05/17/17 05/17/17 06:59 18:59 Intake Total 680 Balance 680 - Medications Medications: Current Medications Aspirin (Aspirin Chewable) 81 mg PO DAILY [facility] Last Admin: 05/17/17 09:05 Dose: 81 mg Atorvastatin Calcium (Lipitor) 40 mg PO DIN [facility] Last Admin: 05/16/17 17:21 Dose: 40 mg Enoxaparin Sodium (Lovenox) 70 mg SC Q12H [facility] PRN Reason: Protocol Last Admin: 05/17/17 13:17 Dose: 70 mg Losartan Potassium (Cozaar) 12.5 mg PO DAILY [facility] Last Admin: 05/17/17 09:05 Dose: 12.5 mg Metoprolol Tartrate (Lopressor) 25 mg PO BID [facility] Last Admin: 05/17/17 09:04 Dose: 25 mg Pantoprazole Sodium (Protonix Ec Tab) 40 mg PO 0600 [facility] Last Admin: 05/17/17 06:47 Dose: 40 mg Warfarin Sodium (Coumadin) 10 mg PO 1800 [facility] PRN Reason: Protocol - Labs Labs: 05/17/17 07:00 05/17/17 07:00 PT 15.5 Seconds (9.9-11.8) H 05/17/17 07:00 INR 1.44 (0.93-1.08) H 05/17/17 07:00 APTT 32.0 Seconds (23.7-30.8) H 05/15/17 10:00 - Constitutional Appears: No Acute Distress - Head Exam Head Exam: NORMAL INSPECTION - Eye Exam Eye Exam: EOMI, Normal appearance - ENT Exam ENT Exam: Mucous Membranes Moist, Normal Exam - Neck Exam Neck Exam: Full ROM - Respiratory Exam Respiratory Exam: Clear to Ausculation Bilateral, NORMAL BREATHING PATTERN. absent: Rales, Rhonchi, Wheezes, Respiratory Distress - Cardiovascular Exam Cardiovascular Exam: REGULAR RHYTHM, +S1, +S2. absent: Murmur - GI/Abdominal Exam GI & Abdominal Exam: absent: Distended, Tenderness - Extremities Exam Extremities Exam: absent: Calf Tenderness, Pedal Edema - Back Exam Back Exam: NORMAL INSPECTION - Neurological Exam Neurological Exam: Alert, Awake, Normal Gait, Oriented x3 - Psychiatric Exam Psychiatric exam: Normal Affect, Normal Mood - Skin Skin Exam: Dry, Intact, Normal Color, Warm - Additional Findings Additional findings: Catheter insertion site dressing clean, dry and intact. Pedal pulses intact. Assessment and Plan - Assessment and Plan (Free Text) Assessment: Patient is a 47 y/o with PMH of Dilated cardiomyopathy, dyslipidemia, tobacco abuse, recently discharged with left frontal lobe punctuate infarct (05/14) presents with headache and chest pain. Plan: 1. Headache -CT head was negative for any acute process -neurology consulted, less likely TIA per note -previous MRI of Brain showed acute lacunar infarct of left frontal lobe -continue with lipitor, coumadin and ASA 2. Chest Pain -cardiac cath with no abnormalities -started on Lovenox for bridging to therapeutic INR -troponins 0.31, 2.71 and 2.46 -cardiology consulted -CXR and CT Angio Chest both negative, ECG showing lateral ischemia and nonspecific T wave changes -awaiting cardiac cath results (05/16) -continue ASA, Lipitor and coumadin -PT recommending cardiac rehab -recent ECHO showing dilated cardiomyopathy with EF of 13% 3. Elevated Liver Enzymes -hepatitis panel negative -patient currently asymptomatic -will monitor with daily CMP and consider GI consult based on trend 4. GI/DVT Prophylaxis -protonix/SCD's Patient seen and case discussed with attending physician, Dr. Hess. <Franklin Hess - Last Filed: 05/17/17 16:29> Objective - Vital Signs/Intake and Output Vital Signs (last 24 hours): Temp Pulse Resp BP Pulse Ox 98.2 F 78 20 95/60 L 99 05/17/17 12:00 05/17/17 12:00 05/17/17 12:00 05/17/17 12:00 05/17/17 06:00 Intake and Output: 05/17/17 05/17/17 06:59 18:59 Intake Total 680 360 Balance 680 360 - Medications Medications: Current Medications Aspirin (Aspirin Chewable) 81 mg PO DAILY [facility] Last Admin: 05/17/17 09:05 Dose: 81 mg Atorvastatin Calcium (Lipitor) 40 mg PO DIN [facility] Last Admin: 05/16/17 17:21 Dose: 40 mg Enoxaparin Sodium (Lovenox) 70 mg SC Q12H [facility] PRN Reason: Protocol Last Admin: 05/17/17 13:17 Dose: 70 mg Losartan Potassium (Cozaar) 12.5 mg PO DAILY [facility] Last Admin: 05/17/17 09:05 Dose: 12.5 mg Metoprolol Tartrate (Lopressor) 25 mg PO BID [facility] Last Admin: 05/17/17 09:04 Dose: 25 mg Pantoprazole Sodium (Protonix Ec Tab) 40 mg PO 0600 [facility] Last Admin: 05/17/17 06:47 Dose: 40 mg Warfarin Sodium (Coumadin) 10 mg PO 1800 [facility] PRN Reason: Protocol - Labs Labs: 05/17/17 07:00 05/17/17 07:00 PT 15.5 Seconds (9.9-11.8) H 05/17/17 07:00 INR 1.44 (0.93-1.08) H 05/17/17 07:00 APTT 32.0 Seconds (23.7-30.8) H 05/15/17 10:00 Attending/Attestation - Attestation I have personally seen and examined this patient.: Yes I have fully participated in the care of the patient.: Yes I have reviewed all pertinent clinical information, including history, physical exam and plan: Yes Notes (Text): 05/17/17 16:28 Attending note; patient seen and examined with resident. Patient is a 47 y/o with PMH of Dilated cardiomyopathy, dyslipidemia, tobacco abuse, recently discharged with left frontal lobe punctuate infarct (05/14) presents with headache and chest pain. Elevated troponin; post cardiac cath. Catheterization did not reveal any significant stenosis. Case discussed with Dr. Monterroso in detail. Patient has LifeVest to avoid arrythmia and sudden cardiac . PT evaluation appreciated. Outpatient cardiac rehabilitation recommended. Patient is advised to complete [facility] paperwork. Needs follow-up with [facility] clinic. patient was strongly advised to follow up with [facility] for AICD evaluation/cardiac transplant. The diagnosis and follow-up plan discussed with patien in detail.
[2017-05-18 00:57] VITALS: RESP 18
[2017-05-18] MEDS: Enoxaparin 80 mg Syringe SC SCH ×2 (05:04→12:50)
[2017-05-18] MEDS: Pantoprazole 40 mg EC Tab PO SCH (05:05)
[2017-05-18 07:09] LABS: ALB/GLOB RATIO 1.1 (1.1-1.8); ALT/SGPT 86 U/L (7-56); AST/SGOT 43 U/L (15-59); BLOOD UREA NITROGEN 12 mg/dL (7-21); CALCIUM 9.4 mg/dL (8.4-10.5); GFR AFRICAN-AMERICAN > 60; GFR NON-AFRICAN AMERICAN > 60
[2017-05-18 07:10] LABS: BASO # 0.03 K/mm3 (0.0-2.0); BASO % 0.4 % (0.0-3.0); EOS # 0.1 (0.0-0.7); EOS % 1.4 % (1.5-5.0); GRAN # 4.57 (1.4-6.5); GRAN % 56.8 % (50.0-68.0); HEMOGLOBIN 12.7 gm/dL (14.0-18.0); LYMPH # 2.4 (1.2-3.4); LYMPH % 29.6 % (22.0-35.0); MEAN CELL VOLUME 90.2 fL (80.0-105.0); MEAN CORPUSCULAR HEMOGLOBIN 30.2 pg (25.0-35.0); MEAN CORPUSCULAR HGB CONC 33.5 g/dl (31.0-37.0); MONO % 11.8 % (1.0-6.0); PLATELET COUNT 320 10^3/uL (120.0-450.0); RED CELL DISTRIBUTION WIDTH 13.7 % (11.5-14.5)
[2017-05-18 07:12] LABS: INR 1.48 (0.93-1.08)
[2017-05-18 12:24] VITALS: BP 112/79; PULSE 60; TEMP 98; O2SAT 98
--- NOTE | 2017-05-18 23:14 | CP.PCM.DIS ---
<JESSICA MCALLISTER - Last Filed: 05/18/17 23:08> Provider - Provider Date of Admission: 05/15/17 14:15 Attending physician: Franklin Hess MD Primary care physician: NO PRIMARY CARE PROVIDER Consults: Neurology- Dr. Jo Cardiology- Dr. Monterroso Time Spent in preparation of Discharge (in minutes): 49 Hospital Course - Lab Results Lab Results: Most Recent Lab Values WBC 8.0 10^3/ul (4.5-11.0) 05/18/17 06:00 RBC 4.20 10^6/uL (3.5-6.1) 05/18/17 06:00 Hgb 12.7 gm/dL (14.0-18.0) L 05/18/17 06:00 Hct 37.9 % (42.0-52.0) L 05/18/17 06:00 MCV 90.2 fL (80.0-105.0) 05/18/17 06:00 MCH 30.2 pg (25.0-35.0) 05/18/17 06:00 MCHC 33.5 g/dl (31.0-37.0) 05/18/17 06:00 RDW 13.7 % (11.5-14.5) 05/18/17 06:00 Plt Count 320 10^3/uL (120.0-450.0) 05/18/17 06:00 MPV 10.0 fl (7.0-11.0) 05/18/17 06:00 Gran % 56.8 % (50.0-68.0) 05/18/17 06:00 Lymph % (Auto) 29.6 % (22.0-35.0) 05/18/17 06:00 Bos[place] % (Auto) 11.8 % (1.0-6.0) H 05/18/17 06:00 Eos % (Auto) 1.4 % (1.5-5.0) L 05/18/17 06:00 Baso % (Auto) 0.4 % (0.0-3.0) 05/18/17 06:00 Gran # 4.57 (1.4-6.5) 05/18/17 06:00 Lymph # 2.4 (1.2-3.4) 05/18/17 06:00 [place] # 1.0 (0.1-0.6) H 05/18/17 06:00 Eos # 0.1 (0.0-0.7) 05/18/17 06:00 Baso # 0.03 K/mm3 (0.0-2.0) 05/18/17 06:00 PT 16.0 Seconds (9.9-11.8) H 05/18/17 06:00 INR 1.48 (0.93-1.08) H 05/18/17 06:00 APTT 32.0 Seconds (23.7-30.8) H 05/15/17 10:00 Sodium 139 mmol/L (132-148) 05/18/17 06:00 Potassium 4.1 mmol/L (3.6-5.0) 05/18/17 06:00 Chloride 105 mmol/L (98-107) 05/18/17 06:00 Carbon Dioxide 25 mmol/L (21-33) 05/18/17 06:00 Anion Gap 13 (10-20) 05/18/17 06:00 BUN 12 mg/dL (7-21) 05/18/17 06:00 Creatinine 1.0 mg/dL (0.5-1.4) 05/18/17 06:00 Est GFR ( Amer) > 60 05/18/17 06:00 Est GFR (Non-Af Amer) > 60 05/18/17 06:00 Random Glucose 92 mg/dL (70-110) 05/18/17 06:00 Calcium 9.4 mg/dL (8.4-10.5) 05/18/17 06:00 Magnesium 2.1 mg/dL (1.7-2.2) 05/14/17 21:12 Total Bilirubin 0.6 mg/dL (0.2-1.3) 05/18/17 06:00 AST 43 U/L (15-59) 05/18/17 06:00 ALT 86 U/L (7-56) H 05/18/17 06:00 Alkaline Phosphatase 65 U/L (38-133) 05/18/17 06:00 Lactate Dehydrogenase 785 U/L (333-699) H 05/14/17 21:12 Total Creatine Kinase 136 U/L (35-230) 05/14/17 21:12 Troponin I 2.46 ng/mL H* 05/15/17 10:00 NT-Pro-B Natriuret Pep 357 pg/mL (0-450) 05/14/17 21:12 Total Protein 7.7 g/dL (5.8-8.3) 05/18/17 06:00 Albumin 4.0 g/dL (3.0-4.8) 05/18/17 06:00 Globulin 3.8 gm/dL 05/18/17 06:00 Albumin/Globulin Ratio 1.1 (1.1-1.8) 05/18/17 06:00 Urine Color Yellow (YELLOW) 05/14/17 20:54 Urine Appearance Clear (CLEAR) 05/14/17 20:54 Urine pH 6.0 (4.7-8.0) 05/14/17 20:54 Ur Specific Clif[place] 1.025 (1.005-1.035) 05/14/17 20:54 Urine Protein Negative mg/dL (<30 mg/dL) 05/14/17 20:54 Urine Glucose (UA) Negative mg/dL (NEGATIVE) 05/14/17 20:54 Urine Ketones Negative mg/dL (NEGATIVE) 05/14/17 20:54 Urine Blood Negative (NEGATIVE) 05/14/17 20:54 Urine Nitrate Negative (NEGATIVE) 05/14/17 20:54 Urine Bilirubin Negative (NEGATIVE) 05/14/17 20:54 Urine Urobilinogen 0.2 E.U./dL (<1 E.U./dL) 05/14/17 20:54 Ur Leukocyte Esterase Trace Sherie/uL (NEGATIVE) H 05/14/17 20:54 Urine RBC 0 - 2 /hpf (0-2) 05/14/17 20:54 Urine WBC 0 - 2 /hpf (0-6) 05/14/17 20:54 Ur Epithelial Cells 0 - 2 /hpf (0-5) 05/14/17 20:54 Urine Bacteria Rare (NEG) 05/14/17 20:54 Urine Opiates Screen Positive (NEGATIVE) H 05/15/17 16:00 Urine Methadone Screen Negative (NEGATIVE) 05/15/17 16:00 Ur Barbiturates Screen Negative (NEGATIVE) 05/15/17 16:00 Ur Phencyclidine Scrn Negative (NEGATIVE) 05/15/17 16:00 Ur Amphetamines Screen Negative (NEGATIVE) 05/15/17 16:00 U Benzodiazepines Scrn Negative (NEGATIVE) 05/15/17 16:00 U Oth Cocaine Metabols Negative (NEGATIVE) 05/15/17 16:00 U Cannabinoids Screen Negative (NEGATIVE) 05/15/17 16:00 Hepatitis A IgM Ab Negative (NEGATIVE) 05/15/17 03:08 Hep Bs Antigen Negative (NEGATIVE) 05/15/17 03:08 Hep B Core IgM Ab Negative (NEGATIVE) 05/15/17 03:08 Hepatitis C Antibody Negative (NEGATIVE) 05/15/17 03:08 - Hospital Course Hospital Course: 47 year old male with a pertinent past medical history of recent TIA ( [place] [facility] [place] who presented with a chief complaint of head, shoulders, and neck pain. An ECG and CT head both were unchanged from previous hospital visit and showed no acute process. Serial troponins were ordered and were elevated. Cardiology and Neurology were consulted. Patient was continued on aspirin, lipitor, cozaar, and lopressor. Neurology ruled out intracranial etiology of chief complaint and cleared for cardiac cath. Cardiac cath revealed no blockages in any coronary arteries. Patient was then started on coumadin 10mg. Patient was then sent home on coumadin 7.5 and all other home medications and planned to [facility] for INR/coumadin management visit within one week. - Date & Time of H&P Date of H&P: 05/15/17 Time of H&P: 01:11 Discharge Exam - Head Exam Head Exam: NORMAL INSPECTION - Eye Exam Eye Exam: EOMI, Normal appearance - ENT Exam ENT Exam: Mucous Membranes Moist, Normal Exam - Respiratory Exam Respiratory Exam: NORMAL BREATHING PATTERN, UNREMARKABLE. absent: Rales, Rhonchi, Wheezes, Respiratory Distress - Cardiovascular Exam Cardiovascular Exam: REGULAR RHYTHM, RRR, +S1, +S2 - GI/Abdominal Exam GI & Abdominal Exam: Normal Bowel Sounds. absent: Distended, Guarding - Extremities Exam Additional comments: No calf tenderness or pedal edema bilaterally - Neurological Exam Neurological exam: Alert, Normal Gait, Oriented x3 - Psychiatric Exam Psychiatric exam: Normal Affect, Normal Mood - Skin Skin Exam: Dry, Intact, Normal Color, Warm Discharge Plan - Discharge Medications Prescriptions: Warfarin [Coumadin] 7.5 mg PO 1800 #7 tab - Follow Up Plan Condition: FAIR Disposition: HOME/ ROUTINE Instructions: Angina (DC), Transient Ischemic Attack (DC) Additional Instructions: 1. If your symptoms persist or worsen, please seek emergency medical attention. 2. Follow up with [facility], Dr. Pollard for Lifevest care. 3. Please call [facility] on Sunday May 21, 2017 to set up an INR check. Referrals: Dominguez Pollard MD [Staff Provider] - PCP,NO [Primary Care Provider] - <Franklin Hess - Last Filed: 05/20/17 13:14> Provider - Provider Date of Admission: 05/15/17 14:15 Attending physician: Franklin Hess MD Primary care physician: NO PRIMARY CARE PROVIDER Hospital Course - Lab Results Lab Results: Most Recent Lab Values WBC 8.0 10^3/ul (4.5-11.0) 05/18/17 06:00 RBC 4.20 10^6/uL (3.5-6.1) 05/18/17 06:00 Hgb 12.7 gm/dL (14.0-18.0) L 05/18/17 06:00 Hct 37.9 % (42.0-52.0) L 05/18/17 06:00 MCV 90.2 fL (80.0-105.0) 05/18/17 06:00 MCH 30.2 pg (25.0-35.0) 05/18/17 06:00 MCHC 33.5 g/dl (31.0-37.0) 05/18/17 06:00 RDW 13.7 % (11.5-14.5) 05/18/17 06:00 Plt Count 320 10^3/uL (120.0-450.0) 05/18/17 06:00 MPV 10.0 fl (7.0-11.0) 05/18/17 06:00 Gran % 56.8 % (50.0-68.0) 05/18/17 06:00 Lymph % (Auto) 29.6 % (22.0-35.0) 05/18/17 06:00 Bosque % (Auto) 11.8 % (1.0-6.0) H 05/18/17 06:00 Eos % (Auto) 1.4 % (1.5-5.0) L 05/18/17 06:00 Baso % (Auto) 0.4 % (0.0-3.0) 05/18/17 06:00 Gran # 4.57 (1.4-6.5) 05/18/17 06:00 Lymph # 2.4 (1.2-3.4) 05/18/17 06:00 [place] # 1.0 (0.1-0.6) H 05/18/17 06:00 Eos # 0.1 (0.0-0.7) 05/18/17 06:00 Baso # 0.03 K/mm3 (0.0-2.0) 05/18/17 06:00 PT 16.0 Seconds (9.9-11.8) H 05/18/17 06:00 INR 1.48 (0.93-1.08) H 05/18/17 06:00 APTT 32.0 Seconds (23.7-30.8) H 05/15/17 10:00 Sodium 139 mmol/L (132-148) 05/18/17 06:00 Potassium 4.1 mmol/L (3.6-5.0) 05/18/17 06:00 Chloride 105 mmol/L (98-107) 05/18/17 06:00 Carbon Dioxide 25 mmol/L (21-33) 05/18/17 06:00 Anion Gap 13 (10-20) 05/18/17 06:00 BUN 12 mg/dL (7-21) 05/18/17 06:00 Creatinine 1.0 mg/dL (0.5-1.4) 05/18/17 06:00 Est GFR ( Amer) > 60 05/18/17 06:00 Est GFR (Non-Af Amer) > 60 05/18/17 06:00 Random Glucose 92 mg/dL (70-110) 05/18/17 06:00 Calcium 9.4 mg/dL (8.4-10.5) 05/18/17 06:00 Magnesium 2.1 mg/dL (1.7-2.2) 05/14/17 21:12 Total Bilirubin 0.6 mg/dL (0.2-1.3) 05/18/17 06:00 AST 43 U/L (15-59) 05/18/17 06:00 ALT 86 U/L (7-56) H 05/18/17 06:00 Alkaline Phosphatase 65 U/L (38-133) 05/18/17 06:00 Lactate Dehydrogenase 785 U/L (333-699) H 05/14/17 21:12 Total Creatine Kinase 136 U/L (35-230) 05/14/17 21:12 Troponin I 2.46 ng/mL H* 05/15/17 10:00 NT-Pro-B Natriuret Pep 357 pg/mL (0-450) 05/14/17 21:12 Total Protein 7.7 g/dL (5.8-8.3) 05/18/17 06:00 Albumin 4.0 g/dL (3.0-4.8) 05/18/17 06:00 Globulin 3.8 gm/dL 05/18/17 06:00 Albumin/Globulin Ratio 1.1 (1.1-1.8) 05/18/17 06:00 Urine Color Yellow (YELLOW) 05/14/17 20:54 Urine Appearance Clear (CLEAR) 05/14/17 20:54 Urine pH 6.0 (4.7-8.0) 05/14/17 20:54 Ur Specific [place]if[place] 1.025 (1.005-1.035) 05/14/17 20:54 Urine Protein Negative mg/dL (<30 mg/dL) 05/14/17 20:54 Urine Glucose (UA) Negative mg/dL (NEGATIVE) 05/14/17 20:54 Urine Ketones Negative mg/dL (NEGATIVE) 05/14/17 20:54 Urine Blood Negative (NEGATIVE) 05/14/17 20:54 Urine Nitrate Negative (NEGATIVE) 05/14/17 20:54 Urine Bilirubin Negative (NEGATIVE) 05/14/17 20:54 Urine Urobilinogen 0.2 E.U./dL (<1 E.U./dL) 05/14/17 20:54 Ur Leukocyte Esterase Trace Sherie/uL (NEGATIVE) H 05/14/17 20:54 Urine RBC 0 - 2 /hpf (0-2) 05/14/17 20:54 Urine WBC 0 - 2 /hpf (0-6) 05/14/17 20:54 Ur Epithelial Cells 0 - 2 /hpf (0-5) 05/14/17 20:54 Urine Bacteria Rare (NEG) 05/14/17 20:54 Urine Opiates Screen Positive (NEGATIVE) H 05/15/17 16:00 Urine Methadone Screen Negative (NEGATIVE) 05/15/17 16:00 Ur Barbiturates Screen Negative (NEGATIVE) 05/15/17 16:00 Ur Phencyclidine Scrn Negative (NEGATIVE) 05/15/17 16:00 Ur Amphetamines Screen Negative (NEGATIVE) 05/15/17 16:00 U Benzodiazepines Scrn Negative (NEGATIVE) 05/15/17 16:00 U Oth Cocaine Metabols Negative (NEGATIVE) 05/15/17 16:00 U Cannabinoids Screen Negative (NEGATIVE) 05/15/17 16:00 Hepatitis A IgM Ab Negative (NEGATIVE) 05/15/17 03:08 Hep Bs Antigen Negative (NEGATIVE) 05/15/17 03:08 Hep B Core IgM Ab Negative (NEGATIVE) 05/15/17 03:08 Hepatitis C Antibody Negative (NEGATIVE) 05/15/17 03:08 Attending/Attestation - Attestation I have personally seen and examined this patient.: Yes I have fully participated in the care of the patient.: Yes I have reviewed all pertinent clinical information, including history, physical exam and plan: Yes Notes (Text): 05/20/17 13:13 Attending note; patient seen and examined with resident. Patient is a 47 y/o with PMH of Dilated cardiomyopathy, dyslipidemia, tobacco abuse, recently discharged with left frontal lobe punctuate infarct (05/14) presents with headache and chest pain. Elevated troponin; post cardiac cath. Catheterization did not reveal any significant stenosis. Case discussed with Dr. Monterroso in detail. Patient has LifeVest to avoid arrythmia and sudden cardiac . PT evaluation appreciated. Outpatient cardiac rehabilitation recommended. Patient is advised to [facility] paperwork. [place] [facility]. patient was strongly advised to follow up with [facility] for AICD evaluation/cardiac transplant. The diagnosis and follow-up plan discussed with patirenetta in detail. diagnosis; Nonischemic cardiomyopathy Dyslipidemia Tobacco abuse life vest placement
== END 2017-05-18 16:18 | disposition home or self-care (01) | DRG 287 ==
LOC: ED 20:24 → ERH 23:47 → 2RNO 05-15 05:27 → OBSVTOIN 05-15 14:15 → 2RSO 05-16 12:24
PROVIDERS: ADMIT Internal Medicine; ATTEND Internal Medicine
PROC: 4A023N7 Measurement of Cardiac Sampling and Pressure, Left Heart, Percutaneous Approach (ICD-10-PCS; principal; 2017-05-16)
PROC: B2011ZZ Plain Radiography of Multiple Coronary Arteries using Low Osmolar Contrast (ICD-10-PCS; 2017-05-16)
DX: I42.0 Dilated cardiomyopathy (principal); R07.89 Other chest pain; E78.5 Hyperlipidemia, unspecified; R74.8 Abnormal levels of other serum enzymes; Z72.0 Tobacco use; Z86.73 Personal history of transient ischemic attack (TIA), and cerebral infarction without residual deficits; Z79.82 Long term (current) use of aspirin; Z79.01 Long term (current) use of anticoagulants